=== PATIENT | female | born 1990 | race Caucasian/White ===

== ENCOUNTER 2024-01-08 08:28 | Outpatient (OUT) | payer BC, SELFPAY ==
[2024-01-08 08:54] LABS: Basophils Absolute Auto 0.1 10^3/uL (0.0-0.1); Basophils Percent Auto 1.3 % (0.2-2.0); Eosinophils Absolute Auto 0.2 10^3/uL (0.0-0.7); Eosinophils Percent Auto 3.7 % (0.9-7.0); Hemoglobin 13.9 g/dL (12.0-16.0); Immature Granulocytes Abs Auto 0.01 10^3/uL (0.00-0.03); Immature Granulocytes Pct Auto 0.2 % (0.0-0.5); Lymphocytes Absolute Auto 1.5 10^3/uL (1.2-3.8); Lymphocytes Percent Auto 26.8 % (20.5-60.0); Mean Corpuscular HGB Conc 33.1 g/dL (29.9-35.2); Mean Corpuscular Hemoglobin 30.2 pg (26.7-34.0); Mean Corpuscular Volume 91.3 fL (81.0-99.0); Mean Platelet Volume 9.6 fL (9.5-13.5); Monocytes Absolute Auto 0.5 10^3/uL (0.3-0.8); Monocytes Percent Auto 9.4 % (1.7-12.0); Neutrophils Absolute Auto 3.2 10^3/uL (1.4-6.5); Neutrophils Percent Auto 58.6 % (43.0-75.0); Platelet Count 313 10^3/uL (150-450); Red Cell Distribution Width 12.2 % (11.0-15.0); White Blood Count 5.4 10^3/uL (4.0-11.0)
[2024-01-08 09:32] LABS: Alanine Aminotransferase 16 U/L (14-59); Alkaline Phosphatase 49 U/L (46-116); Anion Gap 12.6; Aspartate Amino Transferase 15 U/L (15-37); BUN Creatinine Ratio 18.5; Bilirubin Total 0.4 mg/dL (0.2-1.0); Calcium 8.9 mg/dL (8.5-10.1); Carbon Dioxide 27.4 mmol/L (21.0-32.0); Chloride 101 mmol/L (98-107); Cholesterol 172 mg/dL (<=200); Estimated GFR (African America >60 (>=60); Estimated GFR (Non-African Ame >60 (>=60); Glucose 79 mg/dL (74-106); HDL Cholesterol 85 mg/dL (40-60); Sodium 137 mmol/L (136-145); Thyroid Stimulating Hormone 5.387 uIU/mL (0.358-3.740); Triglycerides 45 mg/dL (<=150)
[2024-01-08 09:33] LABS: Estimated Average Glucose 97 mg/dL
== END 2024-01-08 08:29 | disposition home or self-care (01) ==
LOC: LAB 08:28
PROVIDERS: Visit Provider Obstetrics & Gynecology
DX: Z00.00 Encounter for general adult medical examination without abnormal findings (principal)
CPT/HCPCS: 36415; 80053; 80061; 83036; 84443; 85025

== ENCOUNTER 2024-04-02 19:37 | Outpatient (REF) | payer BC, SELFPAY ==
--- OUTSIDE RECORDS SUMMARY | 2024-04-02 19:50 | XMS_ITS | CCD ---
Author Organization [facility] CliniSyde Care Team Providers Care Life Skills Educator Name Role Phone RICHARD CRISTINA Unavailable Unavailable RICHARD, CRISTINA Unavailable Unavailable MISC, DOCTOR Unavailable Unavailable CRISTINA RAMOS Unavailable Unavailable TIM, DR TITUS Admitting Unavailable TIM, DR TITUS Attending Unavailable TIM, DR TITUS Consulting Unavailable EVERT, DR ORLY Solomon Primary Care Unavailable ZIEBER, DR VISHNU Alvarez Consulting Unavailable TIM, DR TITUS Admitting Unavailable FRANK[place], DR ROSHAN Roberson Consulting Unavailable EVERT, DR ORLY Solomon Primary Care Unavailable TIM, DR TITUS Attending Unavailable TIM, DR TITUS Consulting Unavailable TIM, DR TITUS Admitting Unavailable DANIEL, ZOLTAN Primary Care Unavailable TIM, DR TITUS Attending Unavailable TIM, DR TITUS Consulting Unavailable TIM, DR TITUS Admitting Unavailable TIM, DR TITUS Attending Unavailable TIM, DR TITUS Consulting Unavailable EVERT, DR ORLY Solomon Primary Care Unavailable ZIEBER, DR VISHNU Alvarez Consulting Unavailable TIM, DR TITUS Admitting Unavailable TIM, DR TITUS Attending Unavailable TIM, DR TITUS Consulting Unavailable EVERT, DR ORLY Solomon Primary Care Unavailable TIM, DR TITUS Procedure Practitioner Unavailab le TIM, DR TITUS Consulting Unavailable EVERT, DR ORLY Solomon Primary Care Unavailable TIM, DR TITUS Admitting Unavailable TIM, DR TITUS Attending Unavailable KATHARINA TAN Procedure Practitioner Unavaila ble KATHARINA TAN Consulting Unavailable AYESHA MCKEON Consulting Unavailable WILIAN TRINH Consulting Unavailable TIM, DR TITUS Admitting Unavailable DANIEL, ZOLTAN Primary Care Unavailable TIM, DR TITUS Attending Unavailable TIM, DR TITUS Consulting Unavailable TIM, DR TITUS Consulting Unavailable EVERT, DR ORLY Solomon Primary Care Unavailable TIM, DR TITUS Admitting Unavailable TIM, DR TITUS Attending Unavailable DANIEL, ZOLTAN Consulting Unavailable DANIEL, ZOLTAN Attending Unavailable DANIEL, ZOLTAN Admitting Unavailable DANIEL, ZOLTAN Primary Care Unavailable DANIEL, ZOLTAN Primary Care Unavailable TIM, DR TITUS Attending Unavailable TIM, DR TITUS Consulting Unavailable TIM, DR TITUS Admitting Unavailable ZIEBER, DR VISHNU Alvarez Consulting Unavailable DANIEL, ZOLTAN Primary Care Unavailable RICHARD, CRISTINA Consulting Unavailable RICHARD, CRISTINA Attending Unavailable RICHARD, CRISTINA Admitting Unavailable RICHARD, CRISTINA Consulting Unavailable RICHARD, CRISTINA Attending Unavailable DANIEL, ZOLTAN Primary Care Unavailable RICHARD, CRISTINA Admitting Unavailable TIM, DR TITUS Admitting Unavailable RICH, DR ORLY Solomon Primary Care Unavailable TIM, DR TITUS Attending Unavailable TIM, DR TITUS Consulting Unavailable [place], DR ROSHAN Roberson Consulting Unavailable TIM, DR TITUS Admitting Unavailable RICH, DR ORLY Solomon Primary Care Unavailable TIM, DR TITUS Attending Unavailable TIM, DR TITUS Consulting Unavailable RCIH, DR ORLY Solomon Primary Care Unavailable TIM, DR TITUS Admitting Unavailable TIM, DR TITUS Attending Unavailable TIM, DR TITUS Admitting Unavailable TIM, DR TITUS Consulting Unavailable RICH, DR ORLY Solomon Primary Care Unavailable TIM, DR TITUS Attending Unavailable TIM, DR TITUS Admitting Unavailable RICH, DR ORLY Solomon Primary Care Unavailable TIM, DR TITUS Attending Unavailable TIM, DR TITUS Consulting Unavailable TIM, DR TITUS Admitting Unavailable TIM, DR TITUS Consulting Unavailable RICH, DR ORLY Solomon Primary Care Unavailable TIM, DR TITUS Attending Unavailable Parul Muhammad Unavailable Unavailable Primary Care Provider Unavailabl e Allergies Allergy Classification Reported Allergen(s) Allergy Type Date of Onset Reaction(s) Facility (1 source) Amoxicillin Drug Allergy 4 [facility] Repository (3 sources) Amoxicillin Drug Allergy 4 QR Artist Other (2 sources) Amoxicillin-Pot Clavulanate Drug Intolerance 9 [facility] Medications Current Medications Medication Drug Class(es) Dates Sig (Normalized) Sig (Original) azithromycin 250 mg oral tablet (1 source) Macrolide Antimicrobial Start: 03-26-2022 Azithromycin 250 MG 2 tablet on the first day, then 1 tablet daily for 4 days Orally Once a day for 5 day(s) Feb, Active Problems Active Problems Problem Classification Problem Date Documented Date Episodic/Chronic Acute and chronic tonsillitis (1 source) Other chronic diseases of tonsils and adenoids; Translations: [Other chronic disease of tonsils and adenoids] 06-21-2023 Chronic Menstrual disorders (4 sources) Irregular menstruation, unspecified; Translations: [IRREGULAR MENSTRUATION UNSPECIFIED] Onset: 06-07-2021 Chronic Other complications of ; puerperium affecting management of mother (1 source) Obesity complicating childbirth; Translations: [OBESITY COMPLICATING CHILDBIRTH] Onset: 12-22-2021 Chronic Other complications of ; puerperium affecting management of mother (1 source) Spinal and epidural anesthesia-induced headache during the puerperium; Translations: [SP EPID ANES-IND H/A DUR PUERPERIUM] Onset: 12-22-2021 Episodic Other complications of (4 sources) Maternal care for other known or suspected poor growth, unspecified trimester, not applicable or unspecified; Translations: [MAT CARE OTH SD FTL GRTH UNS TM UNS] Onset: 12-02-2021 Episodic Other complications of (4 sources) Other specified related conditions, third trimester; Translations: [OTH SPEC PREG RELATED COND 3RD TRI] Onset: 11-09-2021 Episodic Other complications of (4 sources) Maternal care for other known or suspected poor growth, third trimester, not applicable or unspecified; Translations: [MAT CARE OTH SD FTL GRTH 3RD TM UNS] Onset: 10-26-2021 Episodic Other nutritional; endocrine; and metabolic disorders (1 source) Obesity, unspecified; Translations: [OBESITY UNSPECIFIED] Onset: 12-22-2021 Chronic Other and delivery including normal (11 sources) Encounter for routine follow-up; Translations: [Single live ] Onset: 05-17-2021 Episodic Other upper respiratory infections (5 sources) Sore throat symptom; Translations: [Acute pharyngitis, unspecified] Episodic Previous (3 sources) Maternal care for unspecified type scar from previous delivery; Translations: [MAT CARE UNS TYPE SCAR PREV C-SECT] Onset: 12-15-2021 Episodic Residual codes; unclassified (1 source) 39 weeks gestation of ; Translations: [39 WEEKS GESTATION OF ] Onset: 12-22-2021 Episodic Residual codes; unclassified (1 source) Weeks of gestation of not specified; Translations: [WEEKS GESTATION NOT SPEC] Onset: 12-05-2021 Episodic Residual codes; unclassified (1 source) 33 weeks gestation of ; Translations: [33 WEEKS GESTATION OF ] Onset: 11-10-2021 Episodic Residual codes; unclassified (1 source) 31 weeks gestation of ; Translations: [31 WEEKS GESTATION OF ] Onset: 10-28-2021 Episodic Unclassified (20 sources) Encounter for screening for malignant neoplasm of cervix; Translations: [Encounter for screening for Streptococcus B] Onset: 02-05-2018 Episodic Unclassified (4 sources) CONTACT W/AND (SUSP) EXPOS COVID-19; Translations: [CONTACT W/AND (SUSP) EXPOS COVID-19] Onset: 06-03-2021 Past or Other Problems Problem Classification Problem Date Documented Date Episodic/Chronic Immunizations and screening for infectious disease (3 sources) Encounter for screening for infections with a predominantly sexual mode of transmission; Translations: [Contact with and (suspected) exposure to infections with a predominantly sexual mode of transmission] Onset: 04-16-2021 Episodic Other complications of (4 sources) Maternal care for other abnormalities of pelvic organs, first trimester; Translations: [MAT CARE OTH ABN PELV ORGAN 1ST TRI] Onset: 06-21-2021 Episodic Other female genital disorders (4 sources) Other specified noninflammatory disorders of vagina; Translations: [OTH SPEC NONINFLAMMATORY D/O VAGINA] Onset: 07-19-2021 Episodic Ovarian cyst (1 source) Corpus luteum cyst of right ovary; Translations: [CORPUS LUTEUM CYST OF RIGHT OVARY] Onset: 06-22-2021 Episodic Residual codes; unclassified (1 source) 20 weeks gestation of ; Translations: [20 WEEKS GESTATION OF ] Onset: 08-09-2021 Episodic Residual codes; unclassified (1 source) 13 weeks gestation of ; Translations: [13 WEEKS GESTATION OF ] Onset: 06-22-2021 Episodic Unclassified (1 source) CONTACT W/AND (SUSP) EXPOS COVID-19; Translations: [CONTACT W/AND (SUSP) EXPOS COVID-19] Onset: 06-01-2021 Results Test Name Value Interpretation Reference Range Facility No Panel InformationOrdered By: Augusta Mcguire on 06-21-2023 Quick Strep (POC) [facility] Quick Strepon 03-26-2022 S. pyogenes Org specific cx Ql (Throat) Positive [facility] [employer] Other Quick Strep [facility] [employer] Other CBC AUTO DIFFon 12-16-2021 BASO # 0.0 103/ul Normal 0.0-0.1 [facility] Comment on above: Performed By: #### C BC #### [facility] [address] [place] [address] Dr. Linette Vanessa Basophils/100 WBC (Bld) 0.3 % Normal 0.2-2.0 [facility] Comment on above: Performed By: #### C BC #### [facility] [address] [place] [address] Dr. Linette Vanessa EO # 0.2 103/ul Normal 0.0-0.7 [facility] Comment on above: Performed By: #### C BC #### [facility] [address] [place] [address] Dr. Linette Vanessa Eosinophils/100 WBC (Bld) 1.4 % Normal 0.9-7.0 [facility] Comment on above: Performed By: #### C BC #### [facility] [address] [place] [address] Dr. Linette Vanessa Erythrocyte distribution width (RBC) [Ratio] 12.8 % Normal 11.0-15.0 [facility] Comment on above: Performed By: #### C BC #### [facility] [address] [place] [address] Dr. Linette Vanessa Hematocrit (Bld) [Volume fraction] 28.9 % Critically low 36.0-48.0 [facility] Comment on above: Performed By: #### C BC #### [facility] [address] [address] [address] Linette Vanessa Hemoglobin (Bld) [Mass/Vol] 9.6 g/dL Critically low 12.0-16.0 [facility] Comment on above: Performed By: #### C BC #### [facility] [address] [address] [address] Linette Vanessa IG # 0.06 10e3/ul Critically high 0.00-0.03 [facility] Comment on above: Performed By: #### C BC #### [facility] [address] [address] [address] Linette Vanessa IG % 0.5 % Normal 0.0-0.5 [facility] Comment on above: Performed By: #### C BC #### [facility] [address] [place] [address] Dr. Linette Vanessa LYMPH # 2.2 103/ul Normal 1.2-3.8 [facility] Comment on above: Performed By: #### C BC #### [facility] [address] [place] [address] Dr. Linette Vanessa Lymphocytes/100 WBC (Bld) 19.3 % Critically low 20.5-60.0 [facility] Comment on above: Performed By: #### C BC #### [facility] [address] [place] [address] Dr. Linette Vanessa MANUAL DIFF REQ NO Normal [facility] Comment on above: Performed By: #### C BC #### [facility] [address] [place] [address] Dr. Linette Vanessa MCH (RBC) [Entitic mass] 30.3 pg Normal 26.7-34.0 [facility] Comment on above: Performed By: #### C BC #### [facility] [address] [place] [address] Dr. Linette Vanessa MCHC (RBC) [Mass/Vol] 33.2 g/dL Normal 29.9-35.2 [facility] Comment on above: Performed By: #### C BC #### [facility] [address] [place] [address] Dr. Linette Vanessa MCV (RBC) [Entitic vol] 91.2 fL Normal 81.0-99.0 [facility] Comment on above: Performed By: #### C BC #### [facility] [address] [place] [address] Dr. Linette Vanessa MONO # 0.9 103/ul Critically high 0.3-0.8 [facility] Comment on above: Performed By: #### C BC #### [facility] [address] [place] [address] Dr. Linette Vanessa Monocytes/100 WBC (Bld) 7.5 % Normal 1.7-12.0 [facility] Comment on above: Performed By: #### C BC #### [facility] [address] [place] [address] Dr. Linette Vanessa NEUT # 8.1 103/ul Critically high 1.4-6.5 [facility] Comment on above: Performed By: #### C BC #### [facility] [address] [place] [address] Dr. Linette Vanessa Neutrophils/100 WBC (Bld) 71.0 % Normal 43.0-75.0 [facility] Comment on above: Performed By: #### C BC #### [facility] [address] [place] [address] Dr. Linette Vanessa Platelet mean volume (Bld) [Entitic vol] 9.1 fL Critically low 9.5-13.5 [facility] Comment on above: Performed By: #### C BC #### [facility] [address] [place] [address] Dr. Linette Vanessa PLT 232 103/ul Normal 150-450 [facility] Comment on above: Performed By: #### C BC #### [facility] [address] [place] [address] Dr. Linette Vanessa RBC 3.17 106/ul Critically low 4.20-5.40 [facility] Comment on above: Performed By: #### C BC #### [facility] [address] [place] [address] Dr. Linette Vanessa WBC 11.5 103/ul Critically high 4.0-11.0 [facility] Comment on above: Performed By: #### C BC #### [facility] [address] [place] [address] Dr. Linette Vanessa CBC AUTO DIFFon 12-15-2021 BASO # 0.0 103/ul Normal 0.0-0.1 [facility] Comment on above: Performed By: #### C BC #### [facility] [address] [place] [address] Dr. Linette Vanessa Basophils/100 WBC (Bld) 0.4 % Normal 0.2-2.0 [facility] Comment on above: Performed By: #### C BC #### [facility] [address] [place] [address] Dr. Linette Vanessa EO # 0.2 103/ul Normal 0.0-0.7 [facility] Comment on above: Performed By: #### C BC #### [facility] [address] [place] [address] Dr. Linette Vanessa Eosinophils/100 WBC (Bld) 1.7 % Normal 0.9-7.0 [facility] Comment on above: Performed By: #### C BC #### [facility] [address] [place] [address] Dr. Linette Vanessa Erythrocyte distribution width (RBC) [Ratio] 12.6 % Normal 11.0-15.0 [facility] Comment on above: Performed By: #### C BC #### [facility] [address] [place] [address] Dr. Linette Vanessa Hematocrit (Bld) [Volume fraction] 33.7 % Critically low 36.0-48.0 [facility] Comment on above: Performed By: #### C BC #### [facility] [address] [place] [address] Dr. Linette Vanessa Hemoglobin (Bld) [Mass/Vol] 11.3 g/dL Critically low 12.0-16.0 [facility] Comment on above: Performed By: #### C BC #### [facility] [address] [place] [address] Dr. Linette Vanessa IG # 0.07 10e3/ul Critically high 0.00-0.03 [facility] Comment on above: Performed By: #### C BC #### [facility] [address] [place] [address] Dr. Linette Vanessa IG % 0.8 % Critically high 0.0-0.5 [facility] Comment on above: Performed By: #### C BC #### [facility] [address] [place] [address] Dr. Linette Vanessa LYMPH # 2.1 103/ul Normal 1.2-3.8 [facility] Comment on above: Performed By: #### C BC #### [facility] [address] [place] [address] Dr. Linette Vanessa Lymphocytes/100 WBC (Bld) 22.4 % Normal 20.5-60.0 [facility] Comment on above: Performed By: #### C BC #### [facility] [address] [place] [address] Dr. Linette Vanessa MANUAL DIFF REQ NO Normal [facility] Comment on above: Performed By: #### C BC #### [facility] [address] [place] [address] Dr. Linette Vanessa MCH (RBC) [Entitic mass] 30.6 pg Normal 26.7-34.0 [facility] Comment on above: Performed By: #### C BC #### [facility] [address] [place] [address] Dr. Linette Vanessa MCHC (RBC) [Mass/Vol] 33.5 g/dL Normal 29.9-35.2 [facility] Comment on above: Performed By: #### C BC #### [facility] [address] [place] [address] Dr. Linette Vanessa MCV (RBC) [Entitic vol] 91.3 fL Normal 81.0-99.0 [facility] Comment on above: Performed By: #### C BC #### [facility] [address] [place] [address] Dr. Linette Vanessa MONO # 0.7 103/ul Normal 0.3-0.8 [facility] Comment on above: Performed By: #### C BC #### [facility] [address] [place] [address] Dr. Linette Vanessa Monocytes/100 WBC (Bld) 7.1 % Normal 1.7-12.0 [facility] Comment on above: Performed By: #### C BC #### [facility] [address] [place] [address] Dr. Linette Vanessa NEUT # 6.3 103/ul Normal 1.4-6.5 [facility] Comment on above: Performed By: #### C BC #### [facility] [address] [place] [address] Dr. Linette Vanessa Neutrophils/100 WBC (Bld) 67.6 % Normal 43.0-75.0 [facility] Comment on above: Performed By: #### C BC #### [facility] [address] [place] [address] Dr. Linette Vanessa Platelet mean volume (Bld) [Entitic vol] 9.2 fL Critically low 9.5-13.5 [facility] Comment on above: Performed By: #### C BC #### [facility] [address] [place] [address] Dr. Linette Vanessa PLT 261 103/ul Normal 150-450 [facility] Comment on above: Performed By: #### C BC #### [facility] [address] [place] [address] Dr. Linette Vanessa RBC 3.69 106/ul Critically low 4.20-5.40 [facility] Comment on above: Performed By: #### C BC #### [facility] [address] [place] [address] Dr. Linette Vanessa WBC 9.3 103/ul Normal 4.0-11.0 [facility] Comment on above: Performed By: #### C BC #### [facility] [address] [place] [address] Dr. Linette Vanessa CULTURE URINEon 12-15-2021 CULTURE URINE Culture Observations: LIGHT GROWTH OF MIXED GENITAL LB. NO POTENTIAL PATHOGENS SEEN. Normal [facility] Comment on above: Performed By: #### H IV12 #### [facility] [address] [place] [address] Dr. Linette Vanessa DRUG SCREEN RAPID (URINE)on 12-15-2021 AMP Negative Normal NEGATIVE [facility] Comment on above: Performed By: #### D RUGRPD #### [facility] [address] [place] [address] Dr. Linette Vanessa BAR Negative Normal NEGATIVE [facility] Comment on above: Performed By: #### D RUGRPD #### [facility] [address] [place] [address] Dr. Linette Vanessa BUP Negative Normal NEGATIVE [facility] Comment on above: Performed By: #### D RUGRPD #### [facility] [address] [place] [address] Dr. Linette Vanessa BZO Negative Normal NEGATIVE [facility] Comment on above: Performed By: #### D RUGRPD #### [facility] [address] [place] [address] Dr. Linette Vanessa ERI Negative Normal NEGATIVE [facility] Comment on above: Performed By: #### D RUGRPD #### [facility] [address] [place] [address] Dr. Linette Vanessa CUT-OFFS SEE BELOW Normal [facility] Comment on above: Result Comment: AMP (Amphetamine): 500ng/mL, BAR (Barbituates): 200 ng/mL, BZO (Benzodiazepines): 150 ng/mL, BUP (Buprenorphine): 10 ng/mL, ERI (Cocaine): 150 ng/mL, mAMP (Methamphetamine): 500 ng/mL, MTD (Methadone): 200 ng/mL, OPI (Opiates): 100 ng/mL, OXY (Oxycodone): 100 ng/mL, PCP (Phencyclidine): 25 ng/mL, PPX (Propoxyphene): 300 ng/mL, THC (Cannabinoids): 50 ng/mL, TCA (Trycyclic Antidepressants): 300 ng/mL Performed By: #### D RUGRPD #### [facility] [address] [place] [address] Dr. Linette Vanessa DRUG CUT HEADER DRUG CLASS TEST SYSTEM CUT-OFF CONCENTRATIONS ARE FOLLOWS: Normal [facility] Comment on above: Performed By: #### D RUGRPD #### [facility] [address] [place] [address] Dr. Linette Vanessa mAMP Negative Normal NEGATIVE [facility] Comment on above: Performed By: #### D RUGRPD #### [facility] [address] [address] [address] Linette Vanessa MTD Negative Normal NEGATIVE [facility] Comment on above: Performed By: #### D RUGRPD #### [facility] [address] [place] [address] Dr. Linette Vanessa OPI Negative Normal NEGATIVE [facility] Comment on above: Performed By: #### D RUGRPD #### [facility] [address] [place] [address] Dr. Linette Vanessa OXY Negative Normal NEGATIVE [facility] Comment on above: Performed By: #### D RUGRPD #### [facility] [address] [address] [address] Linette Vanessa PCP Negative Normal NEGATIVE [facility] Comment on above: Performed By: #### D RUGRPD #### [facility] [address] [place] [address] Dr. Linette Vanessa PPX Negative Normal NEGATIVE [facility] Comment on above: Performed By: #### D RUGRPD #### [facility] [address] [address] [address] Linette Vanessa TCA Negative Normal NEGATIVE [facility] Comment on above: Performed By: #### D RUGRPD #### [facility] [address] [address] [address] Linette Vanessa THC Negative Normal NEGATIVE [facility] Comment on above: Performed By: #### D RUGRPD #### [facility] [address] [place] [address] Dr. Linette Vanessa TYPE AND SCREENon 12-15-2021 TYPE AND SCREEN Negative Normal [facility] Comment on above: Performed By: #### T NS #### [facility] [address] [place] [address] Dr. Linette Vanessa UA (CLEAN/CATCH) OFFICE SUPPORT ASSOCIATE/MICRO I F IND.on 12-15-2021 Bilirubin Ql (U) Negative Normal NEGATIVE [facility] Comment on above: Performed By: #### C BC #### [facility] [address] [place] [address] Dr. Linette Vanessa Clarity (U) CLEAR Normal CLEAR [facility] Comment on above: Performed By: #### C BC #### [facility] [address] [place] [address] Dr. Linette Vanessa Color (U) LT. YELLOW Normal YELLOW [facility] Comment on above: Performed By: #### C BC #### [facility] [address] [place] [address] Dr. Linette Vanessa Glucose Ql (U) Negative Normal NEGATIVE [facility] Comment on above: Performed By: #### C BC #### [facility] [address] [place] [address] Dr. Linette Vanessa Hemoglobin Ql (U) Negative Normal NEGATIVE [facility] Comment on above: Performed By: #### C BC #### [facility] [address] [place] [address] Dr. Linette Vanessa Ketones Ql (U) Negative Normal NEGATIVE [facility] Comment on above: Performed By: #### C BC #### [facility] [address] [place] [address] Dr. Linette Vanessa LEUKOCYTES TRACE Abnormal NEGATIVE [facility] Comment on above: Performed By: #### C BC #### [facility] [address] [place] [address] Dr. Linette Vanessa Nitrite Ql (U) Negative Normal NEGATIVE [facility] Comment on above: Performed By: #### C BC #### [facility] [address] [place] [address] Dr. Linette Vanessa pH (U) 6.0 [pH] Normal 5-9 [facility] Comment on above: Performed By: #### C BC #### [facility] [address] [place] [address] Dr. Linette Vanessa SPEC GRAVITY 1.020 Normal 1.005-<=1.02 5 [facility] Comment on above: Performed By: #### C BC #### [facility] [address] [place] [address] Dr. Linette Vanessa UA PROTEIN Negative Normal NEGATIVE/ TRACE [facility] Comment on above: Performed By: #### C BC #### [facility] [address] [place] [address] Dr. Linette Vanessa UR MICRO IND INDICATED Normal [facility] Comment on above: Performed By: #### C BC #### [facility] [address] [place] [address] Dr. Linette Vanessa Urobilinogen Qn (U) 0.2 {Roxanna'U}/dL Normal 0.2 - 1. 0 [facility] Comment on above: Performed By: #### C BC #### [facility] [address] [place] [address] Dr. Linette Vanessa URINE MICROSCOPIC ONLYon BACTERIA SMALL Abnormal NONE SEEN [facility] Comment on above: Performed By: #### C BC #### [facility] [address] [place] [address] Dr. Linette Vanessa Bacteria identified Cx Nom (U) INDICATED Normal [facility] Comment on above: Performed By: #### C BC #### [facility] [address] [place] [address] Dr. Linette Vanessa CAST NONE SEEN Normal NONE SEEN [facility] Comment on above: Performed By: #### C BC #### [facility] [address] [place] [address] Dr. Linette Vanessa Crystals LM Nom (Urine sed) NONE SEEN Normal NONE SEEN [facility] Comment on above: Performed By: #### C BC #### [facility] [address] [place] [address] Dr. Linette Vanessa Epithelial cells LM Ql (Urine sed) FEW Abnormal NONE SEEN /RARE [facility] Comment on above: Performed By: #### C BC #### [facility] [address] [place] [address] Dr. Linette Vanessa MUCOUS NONE SEEN Normal NONE SEEN [facility] Comment on above: Performed By: #### C BC #### [facility] [address] [place] [address] Dr. Linette Vanessa RBC 0-2 Normal 0-2 [facility] Comment on above: Performed By: #### C BC #### [facility] [address] [place] [address] Dr. Linette Vanessa WBC 5-10 Abnormal NONE SEEN [facility] Comment on above: Performed By: #### C BC #### [facility] [address] [place] [address] Dr. Linette Vanessa Covid-19 PCR ([facility])on 11-28 SARS-CoV-2 (COVID-19) RNA DARRYL+probe Ql (Unsp spec) Not detected Normal NOT DETECTED [facility] Comment on above: Result Comment: This test is not yet approved or cleared by the [place] FDA. When there are no FDA-approved or cleared tests available, and other criteria are met, FDA can make tests available under an emergency access mechanism called an Emergency Use Authorization (EUA). The EUA for this test is supported by the [employer] of Health and Human Service's (HHS's) declaration that circumstances exist to justify the emergency use of in vitro diagnostics for the detection and/or diagnosis of the virus that causes COVID-19. This EUA will remain in effect (meaning this test can be used) for the duration of the COVID-19 declaration justifying emergency of IVDs, unless it is terminated or revoked by FDA (after which the test may no longer be used). When diagnostic testing is negative, the possibility of a false negative should be considered in the context of a patient's recent exposures and the presence of clinical signs and symptoms consistent with SARS-CoV-2. Performed By: #### A 1C #### [facility] [address] [place] [address] Dr. Linette Vanessa US PREG GROWTHon 12-05-2021 US PREG GROWTH EXAMINATION: US PREG GROWTH HISTORY: [id number] baby COMPARISON: No relevant comparison available. FINDINGS: Heart Rate: 121.4 bpm Amniotic Fluid Volume: 13.2 cm Number: 1.0 Position: Cephalic presentation, longitudinal lie Maximum Vertical Pocket: 2.6 cm cm 2.9 cm cm 2.7 cm cm 5.0 cm cm BIOMETRY: BPD: 9.1 cm cm; 36 weeks 6 days; 60% HC: 33.3 cmcm; 38 weeks 0 days, 45% AC: 33.4 cm cm; 37 weeks 2 days, 70% FL: 6.7 cm cm; 34 weeks 5 days; 4.3 % % EFW: 3011.6 grams, 6 lbs. 10 oz., 45% FL/AC: 20.2 FL/BPD: 74.1 HC/AC: 1.0 GESTATIONAL AGE: Age by EDC: 37 weeks 1 days HERB by EDC: 12/22/2021 Age by US: 36 weeks 5 days HERB by US: 12/25/2021 IMPRESSION: Femur length less than 5% otherwise normal interval growth Electronically authenticated by: ROSHAN VIERA Date: 2021-12-05 07:35 Normal [facility] GROUP B STREP CULTUREon 10-29 S. agalactiae Ag Ql (Unsp spec) Culture Observations: NEGATIVE FOR GROUP B STREPTOCOCCUS. Normal [facility] Comment on above: Performed By: #### G BSCX #### [facility] [address] [place] [address] Dr. Linette Vanessa US PREG BIOPHY W NON STRESSo n 11-09-2021 US PREG BIOPHY W NON STRESS EXAMINATION: US PREG BIOPHY W NON STRESS HISTORY: Abnormal heart rate COMPARISON: No relevant comparison available. TECHNIQUE: Ultrasound biophysical profile was performed in the radiology department. FINDINGS: BREATHING MOVEMENTS: 2.0 GROSS BODY MOVEMENTS: 2.0 TONE: 2.0 QUALITATIVE AMNIOTIC FLUID VOLUME: 2.0 PRESENTATION: CEPHALIC HEART RATE: 139.7 bpm H.B./min AMNIOTIC FLUID VOLUME: 12.3 cm cm GESTATIONAL AGE: 33 weeks 6 days CONCLUSION: Total biophysical profile score: 8.0 Electronically authenticated by: ROSHAN VIERA Date: 2021-11-09 12:52 Normal [facility] US PREG GROWTHon 10-26-2021 US PREG GROWTH EXAMINATION: US PREG GROWTH HISTORY: Small for gestational age fetus COMPARISON: No relevant comparison available. FINDINGS: Heart Rate: 161.0 bpm Amniotic Fluid Volume: 12.6 cm Number: 1.0 Position: Cephalic presentation, longitudinal lie Maximum Vertical Pocket: 3.6 cm cm 3.8 cm cm 3.4 cm cm 1.9 cm cm BIOMETRY: BPD: 8.1 cm cm; 32 weeks 5 days; 66% HC: 30.1 cmcm; 33 weeks 3 days, 56% AC: 29.4 cm cm; 33 weeks 3 days, 87% FL: 6.1 cm cm; 31 weeks 5 days; 32.9 % % EFW: 2064.4 grams, 4 lbs. 5 oz., 72% FL/AC: 20.8 FL/BPD: 75.2 HC/AC: 1.0 GESTATIONAL AGE: Age by EDC: 31 weeks 6 days HERB by EDC: 12/22/2021 Age by US: 32 weeks 6 days HEBR by US: 12/15/2021 IMPRESSION: Normal interval growth Electronically authenticated by: ROSHAN VIERA Date: 2021-10-26 16:39 Normal [facility] AFP MATERNAL FOR SPINA BIFID Aon 09-16-2021 AFP MoM 1.28 Normal [facility] Comment on above: Performed By: #### C BC #### [facility] [address] [address] [address] Linette Vanessa AFP Value 54.2 ng/mL Normal [facility] Comment on above: Performed By: #### C BC #### [facility] [address] [address] [address] Linette Vanessa AFP, Serum for Spina Bifida Report Normal [facility] Comment on above: Performed By: #### C BC #### [facility] [address] [address] [address] Linette Vanessa Comment Comment Normal [facility] Comment on above: Result Comment: Uri Ventura, Ph.D., [facility] Director . References: Available Upon Request. . Multiples Of Median Cutoffs For AFP Elevations Sanchez 2.5 Black 2.8 IDD 2.0 Twins 4.5 Abbreviation Definitions IDD - Insulin Dep Diabetes OSBR - Open Spina Bifida Risk . For further inquiries contact [employer] [facility] at [phone]. Performed By: #### C BC #### [facility] [address] [address] [address] Linette Gaytan Age Collection Date 18.3 weeks Normal [facility] Comment on above: Performed By: #### C BC #### [facility] [address] [address] [address] Linette Vanessa Gestat, Age Based on HERB Normal [facility] Comment on above: Result Comment: Reca lculations are not recommended when gestational dating by LMP and ultrasound are within 10 days. Performed By: #### C BC #### [facility] [address] [address] [address] Linette Vanessa Insulin Dep Diabetes No Normal [facility] Comment on above: Performed By: #### C BC #### [facility] [address] [address] [address] Linette Vanessa Interpretation Comment Normal [facility] Comment on above: Result Comment: Inte rpretation: Screen Negative . This result is screen negative for OSB. The AFP MoM calculated is based on the gestational age provided. MS-AFP can identify up to 80% of open neural tube defects. Closed neural tube defects and some open defects may not be detected by this test. This test does not screen for Down Syndrome or Trisomy 18. If screening for Down Syndrome or Trisomy 18 is desired, contact [employer] to discuss available options. The [place] [employer] recommends amniocentesis be offered to women age 35 and older. Performed By: #### C BC #### [facility] [address] [address] [address] Linette Vanessa [age]B [age] Normal [facility] Comment on above: Performed By: #### C BC #### [facility] [address] [address] [address] Linette Vanessa Multiple Gestation No Normal [facility] Comment on above: Performed By: #### C BC #### [facility] [address] [place] [address] Dr. Linette Vanessa OSBR Risk 1 IN 5096 Normal [facility] Comment on above: Performed By: #### C BC #### [facility] [address] [place] [address] Dr. Linette Vanessa PDF . Normal [facility] Comment on above: Result Comment: This test was developed and its performance characteristics determined by [facility]. It has not been cleared or approved by the Food and Drug Administration. Performed By: #### C BC #### [facility] [address] [place] [address] Dr. Linette Vanessa Race Normal [facility] Comment on above: Performed By: #### C BC #### [facility] [address] [place] [address] Dr. Linette Vanessa Test Results: Negative Normal [facility] Comment on above: Performed By: #### C BC #### [facility] [address] [place] [address] Dr. Linette Vanessa GLUCOSE - 1HRon 09-01-2021 Glucose [Mass/Vol] 77 mg/dL Normal 74-106 [facility] Comment on above: Performed By: #### C BC #### [facility] [address] [place] [address] Dr. Linette Vanessa HEMOGRAM AND PLATELon 2021 Hematocrit (Bld) [Volume fraction] 33.6 % Critically low 36.0-48.0 [facility] Comment on above: Performed By: #### C BC #### [facility] [address] [place] [address] Dr. Linette Vanessa Hemoglobin (Bld) [Mass/Vol] 11.1 g/dL Critically low 12.0-16.0 [facility] Comment on above: Performed By: #### C BC #### [facility] [address] [place] [address] Dr. Linette Vanessa MCH (RBC) [Entitic mass] 31.4 pg Normal 26.7-34.0 [facility] Comment on above: Performed By: #### C BC #### [facility] [address] [place] [address] Dr. Linette Vanessa MCHC (RBC) [Mass/Vol] 33.0 g/dL Normal 29.9-35.2 [facility] Comment on above: Performed By: #### C BC #### [facility] [address] [address] [address] Linette Vanessa MCV (RBC) [Entitic vol] 95.2 fL Normal 81.0-99.0 [facility] Comment on above: Performed By: #### C BC #### [facility] [address] [address] [address] Linette Vanessa PLT 245 103/ul Normal 150-450 [facility] Comment on above: Performed By: #### C BC #### [facility] [address] [address] [address] Linette Vanessa RBC 3.53 106/ul Critically low 4.20-5.40 [facility] Comment on above: Performed By: #### C BC #### [facility] [address] [address] [address] Linette Vanessa WBC 6.3 103/ul Normal 4.0-11.0 [facility] Comment on above: Performed By: #### C BC #### [facility] [address] [place], [place] [address] Dr. Linette Vanessa US PREG ANATOMY SINGLEon US PREG ANATOMY SINGLE EXAMINATION: US P REG ANATOMY SINGLE HISTORY: screening COMPARISON: No relevant comparison available. TECHNIQUE: Transabdominal sonographic examination was performed for obstetrical and evaluation. FINDINGS: Number: 1 Heart Rate: 142.1 bpm H.B. /min Amniotic Fluid Volume: Subjectively normal. Placental Location: POSTERIOR-fundal with lower margin 5.3 cm from internal os. Cervix Length: 5 cm , closed. ANATOMY: Normal Structures -cerebellum, choroid plexus, cisterna magna, lateral cerebral ventricles, orbits, midline falx, hard palate, four-chamber heart, RVOT, LVOT, stomach, kidneys, bladder, umbilical cord insertion into abdomen, three-vessel cord, cervical spine, thoracic spine, lumbar spine, sacral spine, right upper extremity, left upper extremity, right lower extremity, left lower extremity. SUBOPTIMALLY SEEN: None ABNORMALITIES: None BIOMETRY: BPD: 4.9 cm 20 weeks 5 days HC: 18.2 cm 20 weeks 4 days AC: 16.0 cm 21 weeks 1 days FL: 3.4 cm 20 weeks 5 days EFW:384.7 grams; 90% FL/AC: 21.4 FL/BPD: 70.0 HC/AC: 1.1 GESTATIONAL AGE: Age by EDC: 20 weeks 0 days HERB by EDC: 12/22/2021 Age by current US: 20 weeks 6 days HERB by current US: 12/16/2021 IMPRESSION: 1. Single live intrauterine with growth detailed above. Electronically authenticated by: VISHNU DAMON Date: 2021-08-05 08:03 Normal [facility] CHLAMYDIA/GONOCOCCUS DARRYL ( AB/URINE/PAPon 07-22-2021 Chlamydia trachomatis, DARRYL Negative Normal Negative [facility] Comment on above: Performed By: #### C BC #### [facility] [address] [place] [address] Dr. Linette Vanessa Neisseria gonorrhoeae, DARRYL Negative Normal Negative [facility] Comment on above: Performed By: #### C BC #### [facility] [address] [address] [address] Linette Vanessa VAGINITIS/VAGINOSIS DNA PROB Adonis 07-21-2021 Hortencia species Negative Normal Negative [facility] Comment on above: Performed By: #### A 1C #### [facility] [address] [place] [address] Dr. Linette Vanessa Gardnerella vaginalis Positive Abnormal Negative [facility] Comment on above: Performed By: #### A 1C #### [facility] [address] [address] [address] Linette Vanessa Trichomonas vaginalis Negative Normal Negative [facility] Comment on above: Performed By: #### A 1C #### [facility] [address] [place] [address] Dr. Linette Vanessa US PREG TVon 06-21-2021 US PREG TV EXAMINATION: US PREG TV HISTORY: Cyst of right ovary , follow-up COMPARISON: Ultrasound transvaginal 05/13/2021 FINDINGS: GESTATIONAL SAC: Present and normal appearing. POLE: Present and normal appearing. YOLK SAC: Not seen. CARDIAC: Present. UTERUS: Normal size and appearance. OVARIES: Right: Corpus lutein cysts, decreased in size compared to prior study. Left: Not seen. CERVIX: 4.2 cm in length and closed. CUL-DE-SAC: Normal. OTHER: None. AGE BY LMP: 13 weeks, 5 days HERB BY LMP: 12/22/2021 AGE BY US CRL: 14 weeks, 1 day HERB BY US CRL: 12/19/2021 IMPRESSION: 1. Single live intrauterine . 2. Corpus lutein cyst within right ovary has decreased in size compared to prior study. No suspicious findings. Electronically authenticated by: VISHNU DAMON Date: 2021-06-21 17:32 Normal [facility] HEPATITIS C VIRUS AB W/ REFL EX QUANTon 06-09-2021 HCV AB <0.1 Normal 0.0-0.9 [facility] Comment on above: Performed By: #### C BC #### [facility] [address] [place] [address] Dr. Linette Vanessa Interpretation: Comment Normal [facility] Comment on above: Result Comment: Nega tive Not infected with HCV, unless recent infection is suspected or other evidence exists to indicate HCV infection. Performed By: #### C BC #### [facility] [address] [place] [address] Dr. Linette Vanessa HEP B SURFACE ANTIGEN SCREEN on 06-08-2021 HBsAg Screen Negative Normal Negative [facility] Comment on above: Performed By: #### A 1C #### [facility] [address] [place] [address] Dr. Linette Vanessa HIV 1 AND 2 WITH REFLEXon HIV Screen 4th Generation wRfx Non-Reactive Normal Non Reactive [facility] Comment on above: Result Comment: HIV Negative HIV-1/HIV-2 antibodies and HIV-1 p24 antigen were NOT detected. There is no laboratory evidence of HIV infection. Performed By: #### H IV12 #### [facility] [address] [place] [address] Dr. Linette Vanessa RPR QUANTon 06-08-2021 Rapid Plasma Reagin, Quant Non-Reactive Normal NonRea<1:1 [facility] Comment on above: Performed By: #### C BC #### [facility] [address] [place] [address] Dr. Linette Vanessa RUBELLA AB IGGon 06-08-2021 Rubella Antibodies, IgG 2.43 index Normal Immune >0.99 [facility] Comment on above: Result Comment: Non- immune <0.90 Equivocal 0.90 - 0.99 Immune >0.99 Performed By: #### H IV12 #### [facility] [address] [place] [address] Dr. Linette Vanessa CBC AUTO DIFFon 06-07-2021 BASO # 0.0 103/ul Normal 0.0-0.1 [facility] Comment on above: Performed By: #### C BC #### [facility] [address] [place] [address] Dr. Linette Vanessa Basophils/100 WBC (Bld) 0.4 % Normal 0.2-2.0 [facility] Comment on above: Performed By: #### C BC #### [facility] [address] [place] [address] Dr. Linette Vanessa EO # 0.1 103/ul Normal 0.0-0.7 [facility] Comment on above: Performed By: #### C BC #### [facility] [address] [place] [address] Dr. Linette Vanessa Eosinophils/100 WBC (Bld) 1.0 % Normal 0.9-7.0 [facility] Comment on above: Performed By: #### C BC #### [facility] [address] [place] [address] Dr. Linette Vanessa Erythrocyte distribution width (RBC) [Ratio] 11.9 % Normal 11.0-15.0 [facility] Comment on above: Performed By: #### C BC #### [facility] [address] [place] [address] Dr. Linette Vanessa Hematocrit (Bld) [Volume fraction] 37.9 % Normal 36.0-48.0 [facility] Comment on above: Performed By: #### C BC #### [facility] [address] [place] [address] Dr. Linette Vanessa Hemoglobin (Bld) [Mass/Vol] 12.7 g/dL Normal 12.0-16.0 [facility] Comment on above: Performed By: #### C BC #### [facility] [address] [place] [address] Dr. Linette Vanessa IG # 0.03 10e3/ul Normal 0.00-0.03 [facility] Comment on above: Performed By: #### C BC #### [facility] [address] [place] [address] Dr. Linette Vanessa IG % 0.4 % Normal 0.0-0.5 [facility] Comment on above: Performed By: #### C BC #### [facility] [address] [place] [address] Dr. Linette Vanessa LYMPH # 1.9 103/ul Normal 1.2-3.8 [facility] Comment on above: Performed By: #### C BC #### [facility] [address] [place] [address] Dr. Linette Vanessa Lymphocytes/100 WBC (Bld) 24.9 % Normal 20.5-60.0 [facility] Comment on above: Performed By: #### C BC #### [facility] [address] [place] [address] Dr. Linette Vanessa MANUAL DIFF REQ NO Normal [facility] Comment on above: Performed By: #### C BC #### [facility] [address] [place] [address] Dr. Linette Vanessa MCH (RBC) [Entitic mass] 30.2 pg Normal 26.7-34.0 [facility] Comment on above: Performed By: #### C BC #### [facility] [address] [place] [address] Dr. Linette Vanessa MCHC (RBC) [Mass/Vol] 33.5 g/dL Normal 29.9-35.2 [facility] Comment on above: Performed By: #### C BC #### [facility] [address] [place] [address] Dr. Linette Vanessa MCV (RBC) [Entitic vol] 90.0 fL Normal 81.0-99.0 [facility] Comment on above: Performed By: #### C BC #### [facility] [address] [place] [address] Dr. Linette Vanessa MONO # 0.4 103/ul Normal 0.3-0.8 [facility] Comment on above: Performed By: #### C BC #### [facility] [address] [place] [address] Dr. Linette Vanessa Monocytes/100 WBC (Bld) 5.2 % Normal 1.7-12.0 [facility] Comment on above: Performed By: #### C BC #### [facility] [address] [place] [address] Dr. Linette Vanessa NEUT # 5.3 103/ul Normal 1.4-6.5 [facility] Comment on above: Performed By: #### C BC #### [facility] [address] [place] [address] Dr. Linette Vanessa Neutrophils/100 WBC (Bld) 68.1 % Normal 43.0-75.0 [facility] Comment on above: Performed By: #### C BC #### [facility] [address] [place] [address] Dr. Linette Vanessa Platelet mean volume (Bld) [Entitic vol] 9.2 fL Critically low 9.5-13.5 [facility] Comment on above: Performed By: #### C BC #### [facility] [address] [place] [address] Dr. Linette Vanessa PLT 294 103/ul Normal 150-450 [facility] Comment on above: Performed By: #### C BC #### [facility] [address] [place] [address] Dr. Linette Vanessa RBC 4.21 106/ul Normal 4.20-5.40 [facility] Comment on above: Performed By: #### C BC #### [facility] [address] [place] [address] Dr. Linette Vanessa WBC 7.8 103/ul Normal 4.0-11.0 [facility] Comment on above: Performed By: #### C BC #### [facility] [address] [address] [address] Linette Vanessa CULTURE URINEon 06-07-2021 CULTURE URINE Culture Observations: NO GROWTH. Normal [facility] Comment on above: Performed By: #### U RCX #### [facility] [address] [address] [address] Linette Vanessa GLYCOHEMOGLOBIN A1Con 2021 ADA RECOMMENDATION ADA THERAPEUTIC TARGET 6.0 - 7.0 ACTION SUGGESTED > 7.0 Normal [facility] Comment on above: Performed By: #### A 1C #### [facility] [address] [place] [address] Dr. Linette Vanessa Glucose [Mass/Vol] 111 mg/dL Normal [facility] Comment on above: Performed By: #### A 1C #### [facility] [address] [place] [address] Dr. Linette Vanessa HbA1c (Bld) [Mass fraction] 5.5 % Normal <=6.0 [facility] Comment on above: Performed By: #### A 1C #### [facility] [address] [place] [address] Dr. Linette Vanessa ISH BOX TEST PT SEND OUTo n 06-07-2021 SENT TO REF LAB 06/07/2021 Normal [facility] Comment on above: Performed By: #### C BC #### [facility] [address] [place] [address] Dr. Linette Vanessa TYPE AND SCREENon 06-07-2021 TYPE AND SCREEN Negative Normal [facility] Comment on above: Performed By: #### H IV12 #### [facility] [address] [place] [address] Dr. Linette Vanessa ASYMPTOMATIC COVID-19 ANTIGE Non 06-01-2021 EUA Statement SEE BELOW Normal [facility] Comment on above: Result Comment: This test has not been FDA cleared or approved, but has been authorized by the FDA under an Emergency Use Authorization (EUA) for use by authorized laboratories certified under CLIA that meet the requirements to perform moderate or high complexity testing. This test has been authorized only for the detection of proteins from SARS-CoV-2, not for any other viruses or pathogens. The emergency use of this test is authorized for the duration of the declaration that circumstances exist justifying the authorization of emergency use of in vitro diagnostic tests for detection and/or diagnosis of Covid-19 under section 564(b)(1) of the Act, 21 U.S.C. 360bbb-3(b)(1), unless the declaration is terminated or authorization is revoked sooner. Performed By: #### C VDAGA #### [facility] [address] [place] [address] Dr. Linette Vanessa SARS-CoV-2 (COVID-19) RNA DARRYL+probe Ql (Unsp spec) Negative Normal NEGATIVE [facility] Comment on above: Result Comment: Nega tive results are presumptive. They do not preclude infection and should not be used as the sole basis for treatment decisions. Additional confirmatory testing by a molecular method should be considered. Performed By: #### C VDAGA #### [facility] [address] [place] [address] Dr. Linette Vanessa US PREG TVon 05-13-2021 US PREG TV EXAMINATION: US PREG TV HISTORY: Missed period COMPARISON: No relevant comparison available. FINDINGS: GESTATIONAL SAC: Present and normal appearing. POLE: Present and normal appearing. YOLK SAC: Present. CARDIAC: Present. UTERUS: Normal size and appearance. OVARIES: Right: Corpus lutein cyst. Left: Normal. CERVIX: 3.4 cm in length and closed. CUL-DE-SAC: Normal. OTHER: Prominent parauterine vessels. AGE BY LMP: 8 weeks, 1 day HERB BY LMP: 12/22/2021 AGE BY US CRL: 8 weeks, 5 days HERB BY US CRL: 12/18/2021 IMPRESSION: 1. Single live intrauterine . Electronically authenticated by: VISHNU DAMON Date: 2021-05-13 10:55 Normal [facility] PREG QUANT HCGon 04-29-2021 HCG QUANT [id number] mIU/mL Normal [facility] Comment on above: Performed By: #### A 1C #### [facility] [address] [place] [address] Dr. Linette Vanessa HCG RANGE SEE BELOW Normal [facility] Comment on above: Result Comment: 5-50 0-1 WEEK 40-300 1-2 WEEKS 100-1,000 2-3 WEEKS 500-6,000 3-4 WEEKS 5,000-200,000 1-2 MONTHS 10,000-100,000 2-3 MONTHS 3,000-50,000 2ND TRIMESTER 1,000-50,000 3RD TRIMESTER Performed By: #### A 1C #### [facility] [address] [address] [address] Linette Vanessa Pap IG, rfx Aptima HPV, rfx 16/18,45 + Con 04-19-2021 . . Normal [facility] Comment on above: Result Comment: Perf ormed at: WB Performed By: #### H IV12 #### [facility] [address] [place] [address] Dr. Linette Vanessa Chlamydia, Nuc. Acid Amp Negative Normal Negative [facility] Comment on above: Result Comment: Perf ormed at: =G Performed By: #### H IV12 #### [facility] [address] [place] [address] Dr. Linette Vanessa DIAGNOSIS: Comment Normal [facility] Comment on above: Result Comment: NEGA TIVE FOR INTRAEPITHELIAL LESION OR MALIGNANCY. Performed at: WB Performed By: #### H IV12 #### [facility] [address] [place] [address] Dr. Linette Vanessa Gonococcus, Nuc. Acid Amp Negative Normal Negative [facility] Comment on above: Result Comment: Perf ormed at: =G Performed By: #### H IV12 #### [facility] [address] [place] [address] Dr. Linette Vanessa HPV Aptima Negative Normal Negative [facility] Comment on above: Result Comment: This nucleic acid amplification test detects fourteen high-risk HPV types (16,18,31,33,35,39,45,51,52,56,58,59,66,68) without differentiation. Performed at: =G Performed By: #### H IV12 #### [facility] [address] [place] [address] Dr. Linette Vanessa Methodology: Comment Normal [facility] Comment on above: Result Comment: This liquid based ThinPrep(R) pap test was screened with the use of an image guided system. Performed at: WB Performed By: #### H IV12 #### [facility] [address] [address] [address] Linette Vanessa Note: Comment Normal [facility] Comment on above: Result Comment: The Pap smear is a screening test designed to aid in the detection of premalignant and malignant conditions of the uterine cervix. It is not a diagnostic procedure and should not be used as the sole means of detecting cervical cancer. Both false-positive and false-negative reports do occur. . Performed at: WB Performed By: #### H IV12 #### [facility] [address] [address] [address] Linette Vanessa Performed by: Comment Normal [facility] Comment on above: Result Comment: Rosaura Ureña, Manager Business Operations (ASCP) Performed at: WB Performed By: #### H IV12 #### [facility] [address] [place] [address] Dr. Linette Vanessa Specimen adequacy: Comment Normal [facility] Comment on above: Result Comment: Sati sfactory for evaluation. Endocervical and/or squamous metaplastic cells (endocervical component) are present. Performed at: WB Performed By: #### H IV12 #### [facility] [address] [place] [address] Dr. Linette Vanessa PAP W/ HR HPV RFX 16 AND 18o n 02-07-2018 DIAGNOSIS: Comment Normal [facility] Comment on above: Result Comment: NEGA TIVE FOR INTRAEPITHELIAL LESION AND MALIGNANCY.Performed at: WB Performed By: #### P APHR2 ####[facility] [address] [address]Nicholas Murphy HPV, high-risk Negative Normal Negative [facility] Comment on above: Result Comment: This high-risk HPV test detects thirteen high-risk types(16/18/31/33/35/39/45/51/52/56/58/59/68) without differentiation. .Performed at: =G Performed By: #### P APHR2 ####[facility] [address] [place] [address] Katherine Methodology: Comment Normal [facility] Comment on above: Result Comment: This liquid based ThinPrep(R) pap test was screened with theuse of an image guided system.Performed at: WB Performed By: #### P APHR2 ####[facility] [address] [place] [address] Katherine Note: Comment Normal [facility] Comment on above: Result Comment: The Pap smear is a screening test designed to aid in the detection ofpremalignant and malignant conditions of the uterine cervix. It is not adiagnostic procedure and should not be used as the sole means of detectingcervical cancer. Both false-positive and false-negative reports do occur. .Performed at: WB Performed By: #### P APHR2 ####[facility] [address] [place] [address] Katherine Performed by: Comment Normal [facility] Comment on above: Result Comment: Ryann Mejia, Manager Business Operations (ASCP)Performed at: WB Performed By: #### P APHR2 ####[facility] [address] [place] [address] Katherine Specimen adequacy: Comment Normal [facility] Comment on above: Result Comment: Sati sfactory for evaluation. Endocervical and/or squamous metaplasticcells (endocervical component) are present.Performed at: WB Performed By: #### P APHR2 ####[facility] [address] [place] [address] Katherine . . Normal [facility] Comment on above: Result Comment: Perf ormed at: WB Performed By: #### P APHR2 ####[facility] [address] [place] [address] Katherine Vital Signs Date Time Vital Sign Value Performing Clinician Facility 04-02-2024 16:29-0500 Body weight 88 kg Ariela Tim [employer] Work Phone: [facility] 04-02-2024 16:29-0500 Diastolic blood pressure 76 mm[Hg] Ariela Tim DO Work Phone: [facility] 04-02-2024 16:29-0500 Systolic blood pressure 118 mm[Hg] Ariela Tim DO Work Phone: [facility] 06-21-2023 10:02-0500 Body height 167.64 cm [facility] 06-21-2023 10:02-0500 Body mass index (BMI) [Ratio] 30.9 kg/m2 [facility] 06-21-2023 10:02-0500 Body temperature 98.8 [degF] [facility] 06-21-2023 10:02-0500 Body weight 87.08 kg [facility] 06-21-2023 10:02-0500 Heart rate 81 /min [facility] 06-21-2023 10:02-0500 Respiratory rate 18 /min [facility] 06-21-2023 10:02-0500 SaO2% (BldA) [Mass fraction] 98 % [facility] 03-26-2022 10:30-0500 Body height 167.64 cm Parul Sabina Other [facility] [facility] [employer] Other 03-26-2022 10:30-0500 Body mass index (BMI) [Ratio] 30.66 kg/m2 Parul Sabina Other [employer] Other 03-26-2022 10:30-0500 Body temperature 98.1 [degF] Parul Sabina Other [employer] Other 03-26-2022 10:30-0500 Body weight 86.18 kg Parul Sabina Other [employer] Other 03-26-2022 10:30-0500 Diastolic blood pressure 68 mm[Hg] Parul Sabina Other [employer] Other 03-26-2022 10:30-0500 Respiratory rate 18 /min Parul Muhammad Other [employer] Other 03-26-2022 10:30-0500 SaO2% (BldA) [Mass fraction] 100 % Parul Muhammad Other [facility] Other 03-26-2022 10:30-0500 Systolic blood pressure 120 mm[Hg] Parul Muhammad Other [employer] Other 09-16-2021 13:48-0400 Body weight 81.[address] DR ARIELA DUMONT [facility] Comment on above: Performed By: #### CBC #### [facility] [address] [place] [address] Dr. Linette Vanessa Encounters Encounter Date Encounter Type Care Provider Facility Start: 04-02-2024 End: 04-02-2024 Patient encounter procedure Ariela Tim DO Work Phone: [facility] Work Phone: Start: 04-02-2024 End: 04-02-2024 Periodic preventive med est patient 18-39 yrs Ariela Tim DO Work Phone: [facility] Comment on above: Well woman exam with routine gynecological exam Start: 04-02-2024 End: 04-02-2024 Bamboo flowsheet Ariela Tim DO Work Phone: [facility] Start: 04-02-2024 End: 04-02-2024 Bamboo flowsheet Ariela Tim DO Work Phone: [facility] Start: 06-21-2023 End: 06-21-2023 ambulatory [facility] Work Phone: Start: 06-21-2023 End: 06-21-2023 Patient encounter procedure [facility] Work Phone: Start: 03-26-2022 End: 03-26-2022 ambulatory Parul Muhammad Other [employer] Other Start: 03-26-2022 Office outpatient ne w 20 minutes Parul Muhammad [facility] Start: 12-21-2021 End: 12-21-[address] ORLY RICH Facility:[facility]1 Start: 12-15-2021 End: 12-17-2021 Evaluation and management of inpatient DR ARIELA DUMONT Facility:[facility] Start: 12-14-2021 Encounter for preprocedural laboratory examination DR ARIELA DUMONT [facility] Start: 12-13-2021 End: 12-14-[address] ARIELA DUMONT Facility:[facility] Start: 12-13-2021 End: 12-14-2021 Encounter for preprocedural laboratory examination DR ARIELA DUMONT Facility:[facility] Start: 12-02-2021 End: 12-03-[address] ARIELA DUMONT Facility:[facility]1 Start: 11-23-2021 End: 11-23-[address] ARIELA DUMONT Facility:[facility] Start: 11-09-2021 End: 11-09-[address] ARIELA DUMONT Facility:[facility] Start: 10-26-2021 End: 10-27-[address] ROSHAN VIERA Facility:[facility] Start: 09-01-2021 End: 09-02-[address] ARIELA DUMONT Facility:[facility] Start: 08-04-2021 End: 08-05-[address] ARIELA DUMONT Facility:[facility] Start: 07-23-2021 End: 07-24-[address] ARIELA DUMONT Facility:[facility] Start: 07-19-2021 End: 07-19-[address] ARIELA DUMONT Facility:[facility] Start: 06-21-2021 End: 06-22-[address] ARIELA DUMONT Facility:[facility] Start: 06-07-2021 End: 06-08-[address] ARIELA DUMONT Facility:[facility] Start: 06-01-2021 End: 06-01-2021 ambulatory ZOLTAN SANCHEZ Facility:[facility] Start: 05-13-2021 End: 05-14-2021 ambulatory ZOLTAN SANCHEZ Facility:[facility] Start: 05-05-2021 Encounter for gynecological examination (general) (routine) without abnormal findings CRISTINA RAMOS [facility] Start: 04-29-2021 End: 04-30-2021 ambulatory ZOLTAN SANCHEZ Facility:[facility] Start: 04-29-2021 End: 04-30-2021 Encounter for gynecological examination (general) (routine) without abnormal findings ZOLTAN SANCHEZ Facility:[facility] Start: 04-13-2021 End: 04-13-2021 ambulatory CRISTINA RAMOS Facility:[facility] Start: 02-05-2018 End: 02-05-2018 Patient encounter CRISTINA RAMOS Facility:[facility]1 Procedures Date Procedure Procedure Detail Performing Clinician Start: 06-21-2023 Quick Strep (POC) Start: 12-16-2021 Introduction of Othe r Therapeutic Substance into Spinal Canal, Percutaneous Approach DR ARIELA DUMONT Start: 12-15-2021 Extraction of Produc ts of Conception, Low Cervical, Open Approach DR ARIELA DUMONT Plan of Treatment Date Care Activity Detail Author Start: 04-07-2025 End: 04-07-2025 Patient encounter procedure 04/07/2025 3:00 PM EST Office Visit [facility] [address] [place] [id number] Ariela Dumont, [address] [place] [address] [facility] Cytology Cervical or vaginal smear or scraping study Pap Smear Pathology and Cytology Routine Well woman exam with routine gynecological exam Ordered: 04/02/2024 [facility] Work Phone: Comment on above: Ordered: 04/02/2024 Human papilloma viru s DNA [Presence] in Unspecified specimen by Probe with amplification HPV DNA probe, amplified Microbiology Routine Well woman exam with routine gynecological exam Ordered: 04/02/2024 [facility] Comment on above: Ordered: 04/02/2024 Payers Date Payer Category Payer Blue Cross Blue [employer] BCBS [id number] 1988 Unknown [id number] 2.16840.1.096981.3.579.2. 593 1988 Unknown [id number] 2.16840.1.863053.3.579.2. 593 1988 Unknown [id number] 2.16840.1.729303.3.579.2. 593 1988 Unknown [id number] 2.16840.1.726634.3.579.2. 593 1988 Unknown [id number] 2.16840.1.658910.3.579.2. 593 1988 Unknown [id number] 2.16840.1.166314.3.579.2. 593 1988 Unknown [id number] 2.16840.1.088887.3.579.2. 593 1988 Unknown [id number] 2.16840.1.560409.3.579.2. 593 1988 Unknown [id number] 2.16840.1.172383.3.579.2. 593 1988 Unknown [id number] 2.16.840.1.086592.3.579.2. 593 1988 Unknown [id number] 2.16840.1.664251.3.579.2. 593 1988 Unknown [id number] 2.16840.1.346568.3.579.2. 593 1988 Unknown [id number] 2.16.840.1.572193.3.579.2. 593 1988 Unknown [id number] 2.16.840.1.341486.3.579.2. 593 1988 Unknown [id number] 2.16.840.1.541559.3.579.2. 593 1988 Unknown [id number] 2.16.840.1.082514.3.579.2. 593 1988 Unknown [id number] 2.16.840.1.587889.3.579.2. 593 1988 Unknown [id number] 2.16.840.1.711288.3.579.2. 593 1959 Private Health Insurance [id number] 1959 Self-pay [id number] 1959 Unknown [id number] Unknown [id number] 2.16.840.1.905332.3.579.2. 593 Unknown MMO [id number] Unknown Tali BC/BS [id number] Social History Date Type Detail Facility Sex Assigned At [employer] Other Start: 1990 Sex Assigned At Female [facility] Tobacco smoking status WIIS Tobacco smoking consumption unknown [facility] Start: 1990 Sex assigned at Not on file [facility] History of Present illness Narrative 04-02-2024 JAVAD Anders - 04/02/2024 3:50 PM EST Note Date & Type Note Facility 04-02-2024 History of Presen t illness Narrative Reason for Appointment: Patient ID: Sonali Mcdonald is a 33 y.o. female who presents for Well Women Visit Patient presents today for Annual Exam. MEDICATIONS No current outpatient medications ALLERGIES Allergies Allergen Reactions Amoxicillin Hives Amoxicillin-Pot Clavulanate Hives PROBLEMS Active Ambulatory Problems Diagnosis Date Noted No Active Ambulatory Problems Resolved Ambulatory Problems Diagnosis Date Noted No Resolved Ambulatory Problems No Additional Past Medical History HISTORY PAST MEDICAL HISTORY SOCIAL HISTORY No past medical history on file. Social History Tobacco Use Smoking status: Not on file Smokeless tobacco: Not on file Substance Use Topics Alcohol use: Not on file Drug use: Not on file FAMILY HISTORY No family history on file. SURGICAL HISTORY No past surgical history on file. REVIEW OF SYSTEMS Review of Systems: Review of Systems Constitutional: Negative. HENT: Negative. Eyes: Negative. Respiratory: Negative. Cardiovascular: Negative. Gastrointestinal: Negative. Genitourinary: Negative. Musculoskeletal: Negative. Skin: Negative. Neurological: Negative. All other systems reviewed and are negative. Hematological: Negative. Endocrine: Negative. Allergic/Immunologic: Negative. OBJECTIVE Objective: Physical Exam Constitutional: Appearance: Normal appearance. She is normal weight. Genitourinary: Right Adnexa: not tender and no mass present. Left Adnexa: not tender and no mass present. No cervical discharge. Breasts: Breasts are soft. Right: Normal. Left: Normal. HENT: Head: Normocephalic. Nose: Nose normal. Mouth/Throat: Mouth: Mucous membranes are moist. Cardiovascular: Rate and Rhythm: Normal rate. Pulses: Normal pulses. Pulmonary: Effort: Pulmonary effort is normal. Breath sounds: Normal breath sounds. Abdominal: General: Bowel sounds are normal. Palpations: Abdomen is soft. Musculoskeletal: General: Normal range of motion. Cervical back: Normal range of motion. Neurological: General: No focal deficit present. Mental Status: She is alert and oriented to person, place, and time. Skin: General: Skin is warm and dry. Psychiatric: Mood and Affect: Mood normal. Behavior: Behavior normal. Thought Content: Thought content normal. Judgment: Judgment normal. Vitals and nursing note reviewed. Exam conducted with a automatic winder operator present. Vitals: There is no height or weight on file to calculate BMI. BP: 118/76 No LMP recorded. ASSESSMENT & PLAN ICD-10-CM 1. Well woman exam with routine gynecological exam Z01.419 Pap Smear HPV DNA probe, amplified Annual Exam: Patient presents today for an annual exam. Patient states she is doing well and has no complaints. Pap was obtained without difficulty. Orders Placed This Encounter Procedures HPV DNA probe, amplified Follow Up: Patient is to return in one year for annual unless needed otherwise. Documented by JAVAD Anders documented in this encounter [facility] Evaluation note 03-26-2022 Note Date & Type Note Facility 03-26-2022 Evaluation note Encounter Date Diagnosis Assessment Notes Feb, Sore throat (ICD-10 - J02.9) Feb, Strep pharyngitis (ICD-10 - J02.0) Strep throat material was printed Drink plenty fluids, get plenty of rest. Take Tylenol or Motrin as needed for aches pains or fevers. Take the azithromycin as prescribed until gone. Off work today and tomorrow. Follow-up with your family physician if no improvement in 2 to 3 days [facility] Other Clinical Note 12-15-2021 Note Date & Type Note Facility 12-15-2021 Note OPERATIVE NOTE OPERATION DATE: 12/15/2021 PROCEDURE: Repeat low transverse section. PREOPERATIVE DIAGNOSIS: 1. Intrauterine at 39 weeks. 2. Previous . POSTOPERATIVE DIAGNOSIS: 1. Intrauterine at 39 weeks. 2. Previous . ANESTHESIA: Spinal with Duramorph. SURGEON: Ariela Dumont D.O. REAL ESTATE MANAGER: LUTHER Orozco URINE OUTPUT: Yellow and clear. BLOOD LOSS: 575 mL. SPECIMEN: Placenta. FINDINGS: Viable female. Apgars 8 at 1, 9 at 5. Weight unknown at this time. PROCEDURE: Patient was taken back to the Operating Room where she was given a spinal anesthesia with Duramorph without difficulty. She was prepped and draped in the normal sterile fashion. A Pfannenstiel skin incision was then made 2 cm above the symphysis pubis and carried down to underlying rectus fascia using a Bovie. The fascia was incised in the midline and extended laterally using Martinez scissors. Two Boni clamps were placed on the superior aspect of the fascia and dissected off the underlying rectus muscles. The same was performed on the inferior aspect as well. The muscles were then in the midline. Peritoneum was identified and entered bluntly. The peritoneum was then extended superiorly and inferiorly with good visualization of the bladder. The bladder blade was inserted. A low transverse incision was made on the patient's uterus and extended laterally digitally. The infant was then delivered atraumatically after the bladder blade was removed in the cephalic position. The cord was clamped and cut. Cord blood was obtained. The was handed off to awaiting team. The patient's placenta was spontaneously delivered. The uterus was then exteriorized. The uterus was cleared of all clots and debris. The bladder blade was reinserted. The patient's uterine incision was closed using #0 Vicryl in a running lock fashion. Excellent hemostasis was assured. The uterus was then returned to the patient's abdomen. The patient's abdomen was copiously irrigated using warm saline. Peritoneal gutters were cleared of all clots and debris. Again excellent hemostasis was assured. The patient's peritoneum was closed using 3-0 Vicryl in a running fashion. The patient's fascia was closed using #0 Vicryl in a running fashion. The patient's skin was closed using 4-0 Vicryl subcuticularly. The patient tolerated the procedure well. Sponge, lap, and needle counts were correct x2. The patient was taken to the Recovery Room in stable condition. [facility] Evaluation note Note Date & Type Note Facility Evaluation note Diagnosis Onset Date Sore throat acute Tonsillar calculus noneactiv e [facility] Work Phone: Evaluation note Note Date & Type Note Facility Evaluation note Diagnosis Well woman exam with routine gynecological exam Routine gynecological examination documented in this encounter [facility] History general Narrative - Reported Note Date & Type Note Facility History general Narrative - Reported Type Surgical History 2 c-sections [facility] Other Summary Purpose Family History Relationship Condition Age at Onset Recorded Date/T eduard father Diabetes mellitus Unknown Hypertension Unknown Not Specified Malignant melanoma Unknown Unknown Malignant neoplasm Unknown Advance Directives Advance Directive Response Recorded Date/ Time Advance Directives No May 9:31am Chief Complaint and Reason for Visit Chief Complaint sore throat, white s pots on throat Reason for Visit Sore throat Tonsillar calculus Additional Source Comments INFORMATION SOURCE (unrecogn ized section and content) DATE CREATED AUTHOR 03/07/[address] [facility] p[facility] DATE CREATED AUTHOR AUTHOR'S ORGANIZ ATION 12/24/[address] [facility] REASON FOR VISIT (unrecogniz ed section and content) Reason Comments Well Women Visit Care Teams (unrecognized sec tion and content) Team Status: Active Member Role Status Dates Orly Rich MD Primary Care Provider Active Team Status: Inactive Member Role Status Dates Orly Rich MD Primary Care Provider Active S tart: June 21, 2023 End: June 21, 2023 Augusta Mcguire APRN Attending Provider Active Start: June 21, 2023 End: June 21, 2023 Goals (unrecognized section and content) Goals may be documented in a n alternate section FOR RECORDS PERTAINING TO PATIENTS WHO ARE OR HAVE BEEN ENROLLED IN A CHEMICAL DEPENDENCY/SUBSTANCEABUSE PROGRAM, SOME INFORMATION MAY BE OMITTED. This clinical summary was aggregated from multiple sources. Caution should be exercised in using it in the provision of clinical care. This summary normalizes information from multiple sources, and as a consequence, information in this document may materially change the coding, format and clinical context of patient data. In addition, data may be omitted in some cases. CLINICAL DECISIONS SHOULD BE BASED ON THE PRIMARY CLINICAL RECORDS. [facility] [employer] provides no warranty or guarantee of the accuracy or completeness of information in this document.
[2024-04-09 13:13] LABS: Age Gdln ACOG Testing Note (.); HPV Aptima Negative (Negative); IGP, Aptima HPV, rfx 16/18,45 Note (.)
== END 2024-04-02 19:38 | disposition home or self-care (01) ==
LOC: LAB 19:37
PROVIDERS: Visit Provider Obstetrics & Gynecology
DX: Z01.419 Encounter for gynecological examination (general) (routine) without abnormal findings (principal)
CPT/HCPCS: 87624; 88175

== ENCOUNTER 2025-01-22 10:17 | Outpatient (OUT) | payer BC, SELFPAY ==
--- OUTSIDE RECORDS SUMMARY | 2025-01-22 10:24 | XMS_ITS | CCD ---
Author Organization [facility] Care Team Providers Care Loading Machine Operator Name Role Phone CRISTINA RAMOS Unavailable Unavailable CRISTINA RAMOS Unavailable Unavailable MISC, DOCTOR Unavailable Unavailable CRISTINA RAMOS Unavailable Unavailable TIM, DR TITUS Admitting Unavailable TIM, DR TITUS Attending Unavailable TIM, DR TITUS Consulting Unavailable EVERT, DR ORLY Solomon Primary Care Unavailable ZIEBER, DR VISHNU Alvarez Consulting Unavailable TIM, DR TITUS Admitting Unavailable FERNDALE, DR ROSHAN Roberson Consulting Unavailable EVERT, DR ORLY Solomon Primary Care Unavailable TIM, DR TITUS Attending Unavailable TIM, DR TITUS Consulting Unavailable TIM, DR TITUS Admitting Unavailable DANIEL, ZOLTAN Primary Care Unavailable TIM, DR TITUS Attending Unavailable TIM, DR TIUTS Consulting Unavailable TIM, DR TITUS Admitting Unavailable [...] Admitting Unavailable TIM, DR TITUS Attending Unavailable AGUBKATHARINA BEJARANO Procedure Practitioner Unavaila ble CARLOSUBFRANCISCOMKATHARINA Consulting Unavailable AYESHA MCKEON Consulting Unavailable WILIAN [...] CRISTINA Consulting Unavailable RICHARD, CRISTINA Attending Unavailable RAMOS, CRISTINA Admitting Unavailable RAMOS, CRISTINA Consulting Unavailable RAMOS, CRISTINA Attending Unavailable DANIEL, ZOLTAN Primary Care Unavailable RICHARD, CRISTINA Admitting Unavailable TIM, DR TITUS Admitting Unavailable RICH, DR ORLY Solomon Primary Care Unavailable TIM, DR TITUS Attending Unavailable TIM, DR TITUS Consulting Unavailable FERNDALE, DR ROSHAN Roberson Consulting Unavailable TIM, DR TITUS Admitting Unavailable RICH, DR ORLY Solomon Primary Care Unavailable TIM, DR TITUS Attending Unavailable TIM, DR TITUS Consulting Unavailable RICH, [...] Parul Muhammad Unavailable Unavailable Primary Care Provider [place] APRN Primary Care Provider Odalys Arrieta APRN Attending Provider [phone] Allergies Allergy Classification Reported Allergen(s) Allergy Type Date of Onset Reaction(s) Facility (1 source) Amoxicillin Drug Allergy 4 [facility] Repository (4 sources) Amoxicillin Drug Allergy 4 [facility] Other (3 sources) Amoxicillin-Pot Clavulanate Drug Intolerance 9 Hives [facility] Medications Current Medications Medication Drug Class(es) Dates Sig (Normalized) Sig (Original) Fallon (No Known Home Meds) (1 source) Start: 06-10-2024 Fallon (No Known Home Meds) Active June 10, 2024 1:00am Completed/Discontinued Medications Medication Drug Class(es) Dates Sig (Normalized) Sig (Original) azithromycin 250 mg oral tablet (2 sources) Macrolide Antimicrobial Start: 07-11-2023 End: 06-10-2024 take 2 tablets by mouth once daily, then take 1 tablet by mouth once daily Azithromycin (Zithromax Z-Greg) 250 mg tablet Discontinued 250 MG PO Daily 10 02July 11, 2023 12:00am June 10, 2024 6:45pm take 2 tabs today and 1 daily for the next 4 days Start: 03-26-2022 Azithromycin 2 50 MG 2 tablet on the first day, [...] applicable or unspecified; Translations: [MAT CARE OTH ND FTL GRTH UNS TM UNS] Onset: 12-02-2021 Episodic Other complications of (4 sources) Other specified related conditions, third trimester; Translations: [OTH SPEC PREG RELATED COND 3RD TRI] Onset: 11-09-2021 Episodic Other complications of (4 sources) Maternal care for other known or suspected poor growth, third trimester, not applicable or unspecified; Translations: [MAT CARE OTH ND FTL GRTH 3RD TM UNS] Onset: 10-26-2021 Episodic Other nutritional; endocrine; and metabolic disorders (1 source) Obesity, unspecified; Translations: [OBESITY UNSPECIFIED] Onset: 12-22-2021 Chronic Other and delivery including normal (11 sources) Encounter for routine follow-up; Translations: [Single live ] Onset: 05-17-2021 Episodic Other upper respiratory infections (6 sources) Sore throat symptom; Translations: [Acute pharyngitis, [...] Test Name Value Interpretation Reference Range Facility IGP,APTIMA HPV,AGE GDLNon AGE GDLN ACOG TESTING Note . [facility] Comment on above: TESTS RESULT FLAG UN ITS REF RANGE LAB Clinician Provided Cytology Information Source.............Cervix;Endocervix No. of containers..01 ThinPrep Vial Age Algo ACOG Kerry... 30-65 01 FLAG LEGEND: L-Low Normal,H-High Normal,LL-Alert Low,HH-Alert High <-Panic Low,>-Panic High,A-Abnormal,AA-Critical Abnormal Performed at: 01 =G [address] [id number] Leanne Ashton MD, HPV APTIMA Negative Negative [facility] Comment on above: This nucleic acid am plification test detects fourteen high- risk HPV types (16,18,31,33,35,39,45,51,52,56,58,59,66,68) without differentiation. Performed at: = - [address] [id number] Sports Anchor: Leanne Ashton MD, Phone: [phone] Performed at: - [address] [id number] Sports Anchor: Leanne Ashton MD, Phone: [phone] IGP, APTIMA HPV, RFX 16/18,45 Note . [facility] Comment on above: TESTS RESULT FLAG UN ITS REF RANGE LAB DIAGNOSIS: 02 NEGATIVE FOR INTRAEPITHELIAL LESION OR MALIGNANCY. Specimen adequacy: 02 Satisfactory for evaluation. Endocervical and/or squamous metaplastic cells (endocervical component) are present. Performed by: 02 Kiran Boyer, Septic Pump Truck Driver (ASCP) . 02 Note: Note 02 The Pap smear is a screening test designed to aid in the detection of premalignant and malignant conditions of the uterine cervix. It is not a diagnostic procedure and should not be used as the sole means of detecting cervical cancer. Both false-positive and false-negative reports do occur. Test Methodology: Note 02 This liquid based ThinPrep(R) pap test was screened with the use of an image guided system. HPV Genotype Reflex Note 02 Criteria not met, HPV Genotype not performed. FLAG LEGEND: L-Low Normal,H-High Normal,LL-Alert Low,HH-Alert High <-Panic Low,>-Panic High,A-Abnormal,AA-Critical Abnormal Performed at: 02 [facility] [address] [place] [address] Leanne Ashton MD, BRUSH-SPATULA CERVIX ENDOCERVIX [facility] Health[facility] e ALL CBC WITH AUTO DIFFon BASOPHILS ABSOLUTE AUTO 0.1 [facility] Basophils/100 WBC (Bld) 1.3 % 0.2 - 2.0 % [facility] Eosinophils/100 WBC (Bld) 3.7 % 0.9 - 7.0 % [facility] Erythrocyte distribution width (RBC) [Ratio] 12.2 % 11.0 - 15.0 % [facility] Hematocrit (Bld) [Volume fraction] 42.0 % 36.0 - 48.0 % [facility] Hemoglobin (Bld) [Mass/Vol] 13.9 g/dL 12.0 - 16.0 g/dL [facility] IMMATURE GRANULOCYTES ABS AUTO 0.01 [facility] Immature granulocytes/100 WBC (Bld) 0.2 % 0.0 - 0.5 % [facility] LYMPHOCYTES ABSOLUTE AUTO 1.5 [facility] Lymphocytes/100 WBC (Bld) 26.8 % 20.5 - 60.0 % [facility] MCH (RBC) [Entitic mass] 30.2 pg 26.7 - 34.0 pg [facility] MCHC (RBC) [Mass/Vol] 33.1 g/dL 29.9 - 35.2 g/dL [facility] MCV (RBC) [Entitic vol] 91.3 fL 81.0 - 99.0 fL [facility] MONOCYTES ABSOLUTE AUTO 0.5 [facility] Monocytes/100 WBC (Bld) 9.4 % 1.7 - 12.0 % [facility] NEUTROPHILS ABSOLUTE AUTO 3.2 [facility] Neutrophils/100 WBC (Bld) 58.6 % 43.0 - 75.0 % [facility] Platelet mean volume (Bld) [Entitic vol] 9.6 fL 9.5 - 13.5 fL [facility] EO # 0.2 [facility] PLT 313 [facility] RBC 4.60 [facility] WBC 5.4 [facility] No Panel InformationOrdered By: Augusta Mcguire on 06-21-2023 Quick Strep (POC) [facility] Quick Strepon 03-26-2022 S. pyogenes Org specific cx Ql (Throat) Positive [facility] [employer] Other Quick Strep [facility] [employer] Other CBC AUTO DIFFon 12-16-2021 BASO # 0.0 103/ul Normal 0.0-0.1 [facility] Comment on above: Performed By: #### C BC #### [facility] [address] [place] [address] Dr. Linette Vanessa Basophils/100 WBC (Bld) 0.3 % Normal 0.2-2.0 [facility] Comment on above: Performed By: #### C BC #### [facility] [address] [place] [address] Dr. Linette Vanessa EO # 0.2 103/ul Normal 0.0-0.7 [facility] Comment on above: Performed By: #### C BC #### [facility] [address] [address] [address] Linette Vanessa Eosinophils/100 WBC (Bld) 1.4 % Normal 0.9-7.0 [facility] Comment on above: Performed By: #### C BC #### [facility] [address] [place] [address] Dr. Linette Vanessa Erythrocyte distribution width (RBC) [Ratio] 12.8 % Normal 11.0-15.0 [facility] Comment on above: Performed By: #### C BC #### [facility] [address] [address] [address] Linette Vanessa Hematocrit (Bld) [Volume fraction] 28.9 % Critically low 36.0-48.0 [facility] Comment on above: Performed By: #### C BC #### [facility] [address] [address] [address] Linette Vanessa Hemoglobin (Bld) [Mass/Vol] 9.6 g/dL Critically low 12.0-16.0 [facility] Comment on above: Performed By: #### C BC #### [facility] [address] [place] [address] Dr. Linette Vanessa IG # 0.06 10e3/ul Critically high 0.00-0.03 [facility] Comment on above: Performed By: #### C BC #### [facility] [address] [place] [address] Dr. Linette Vanessa IG % 0.5 % Normal 0.0-0.5 [facility] Comment on above: Performed By: #### C BC #### [facility] [address] [place] [address] Dr. Linette Vanessa LYMPH # 2.2 103/ul Normal 1.2-3.8 [facility] Comment on above: Performed By: #### C BC #### [facility] [address] [place] [address] Dr. Linette Vanessa Lymphocytes/100 WBC (Bld) 19.3 % Critically low 20.5-60.0 [facility] Comment on above: Performed By: #### C BC #### [facility] [address] [place] [address] Dr. Linette Vanessa MANUAL DIFF REQ NO Normal [facility] Comment on above: Performed By: #### C BC #### [facility] [address] [place] [address] Dr. Linette Vanessa MCH (RBC) [Entitic mass] 30.3 pg Normal 26.7-34.0 [facility] Comment on above: Performed By: #### C BC #### [facility] [address] [address] [address] Linette Vanessa MCHC (RBC) [Mass/Vol] 33.2 g/dL Normal 29.9-35.2 [facility] Comment on above: Performed By: #### C BC #### [facility] [address] [address] [address] Linette Vanessa MCV (RBC) [Entitic vol] 91.2 fL Normal 81.0-99.0 [facility] Comment on above: Performed By: #### C BC #### [facility] [address] [address] [address] Linette Vanessa MONO # 0.9 103/ul Critically high 0.3-0.8 [facility] Comment on above: Performed By: #### C BC #### [facility] [address] [place] [address] Dr. Linette Vanessa Monocytes/100 WBC (Bld) 7.5 % Normal 1.7-12.0 [facility] Comment on above: Performed By: #### C BC #### [facility] [address] [address] [address] Linette Vanessa NEUT # 8.1 103/ul Critically high 1.4-6.5 [facility] Comment on above: Performed By: #### C BC #### [facility] [address] [place] [address] Dr. Linette Vanessa Neutrophils/100 WBC (Bld) 71.0 % Normal 43.0-75.0 [facility] Comment on above: Performed By: #### C BC #### [facility] [address] [id number] Linette Vanessa Platelet mean volume (Bld) [Entitic vol] 9.1 fL Critically low 9.5-13.5 [facility] Comment on above: Performed By: #### C BC #### [facility] [address] [place] [address] Dr. Linette Vanessa PLT 232 103/ul Normal 150-450 [facility] Comment on above: Performed By: #### C BC #### [facility] [address] [address] [address] Linette Vanessa RBC 3.17 106/ul Critically low 4.20-5.40 [facility] Comment on above: Performed By: #### C BC #### [facility] [address] [address] [address] Linette Vanessa WBC 11.5 103/ul Critically high 4.0-11.0 [facility] Comment on above: Performed By: #### C BC #### [facility] [address] [place] [address] Dr. Linette Vanessa CBC AUTO DIFFon 12-15-2021 BASO # 0.0 103/ul Normal 0.0-0.1 [facility] Comment on above: Performed By: #### C BC #### [facility] [address] [place] [address] Dr. Linette Vanessa Basophils/100 WBC (Bld) 0.4 % Normal 0.2-2.0 [facility] Comment on above: Performed By: #### C BC #### [facility] [address] [place] [address] Dr. Linette Vanessa EO # 0.2 103/ul Normal 0.0-0.7 [facility] Comment on above: Performed By: #### C BC #### [facility] [address] [place] [address] Dr. Linette Vanessa Eosinophils/100 WBC (Bld) 1.7 % Normal 0.9-7.0 [facility] Comment on above: Performed By: #### C BC #### [facility] [address] [place] [address] Dr. Linette Vanessa Erythrocyte distribution width (RBC) [Ratio] 12.6 % Normal 11.0-15.0 [facility] Comment on above: Performed By: #### C BC #### [facility] [address] [place] [address] Dr. Linette Vanessa Hematocrit (Bld) [Volume fraction] 33.7 % Critically low 36.0-48.0 [facility] Comment on above: Performed By: #### C BC #### [facility] [address] [address] [address] Linette Vanessa Hemoglobin (Bld) [Mass/Vol] 11.3 g/dL Critically low 12.0-16.0 [facility] Comment on above: Performed By: #### C BC #### [facility] [address] [address] [address] Linette Vanessa IG # 0.07 10e3/ul Critically high 0.00-0.03 [facility] Comment on above: Performed By: #### C BC #### [facility] [address] [place] [address] Dr. Linette Vanessa IG % 0.8 % Critically high 0.0-0.5 [facility] Comment on above: Performed By: #### C BC #### [facility] [address] [place] [address] Dr. Linette Vanessa LYMPH # 2.1 103/ul Normal 1.2-3.8 [facility] Comment on above: Performed By: #### C BC #### [facility] [address] [place] [address] Dr. Linette Vanessa Lymphocytes/100 WBC (Bld) 22.4 % Normal 20.5-60.0 [facility] Comment on above: Performed By: #### C BC #### [facility] [address] [place] [address] Dr. Linette Vanessa MANUAL DIFF REQ NO Normal [facility] Comment on above: Performed By: #### C BC #### [facility] [address] [place] [address] Dr. Linette Vanessa MCH (RBC) [Entitic mass] 30.6 pg Normal 26.7-34.0 [facility] Comment on above: Performed By: #### C BC #### [facility] [address] [place] [address] Dr. Linette Vanessa MCHC (RBC) [Mass/Vol] 33.5 g/dL Normal 29.9-35.2 [facility] Comment on above: Performed By: #### C BC #### [facility] [address] [place] [address] Dr. Linette Vanessa MCV (RBC) [Entitic vol] 91.3 fL Normal 81.0-99.0 [facility] Comment on above: Performed By: #### C BC #### [facility] [address] [place] [address] Dr. Linette Vanessa MONO # 0.7 103/ul Normal 0.3-0.8 [facility] Comment on above: Performed By: #### C BC #### [facility] [address] [place] [address] Dr. Linette Vanessa Monocytes/100 WBC (Bld) 7.1 % Normal 1.7-12.0 [facility] Comment on above: Performed By: #### C BC #### [facility] [address] [place] [address] Dr. Linette Vanessa NEUT # 6.3 103/ul Normal 1.4-6.5 [facility] Comment on above: Performed By: #### C BC #### [facility] [address] [place] [address] Dr. Linette Vanessa Neutrophils/100 WBC (Bld) 67.6 % Normal 43.0-75.0 [facility] Comment on above: Performed By: #### C BC #### [facility] [address] [place] [address] Dr. Linette Vanessa Platelet mean volume (Bld) [Entitic vol] 9.2 fL Critically low 9.5-13.5 [facility] Comment on above: Performed By: #### C BC #### [facility] [address] [place] [address] Dr. Linette Vanessa PLT 261 103/ul Normal 150-450 [facility] Comment on above: Performed By: #### C BC #### [facility] [address] [place] [address] Dr. Linette Vanessa RBC 3.69 106/ul Critically low 4.20-5.40 [facility] Comment on above: Performed By: #### C BC #### [facility] [address] [place] [address] Dr. Linette Vanessa WBC 9.3 103/ul Normal 4.0-11.0 [facility] Comment on above: Performed By: #### C BC #### [facility] [address] [place] [address] Dr. Linette Vanessa CULTURE URINEon 12-15-2021 CULTURE URINE Culture Observations: LIGHT GROWTH OF MIXED GENITAL LB. NO POTENTIAL PATHOGENS SEEN. Normal [facility] Comment on above: Performed By: #### H IV12 #### [facility] [address] [place] [address] Dr. Linette Vanessa DRUG SCREEN RAPID (URINE)on 12-15-2021 AMP Negative Normal NEGATIVE [facility] Comment on above: Performed By: #### D RUGRPD #### [facility] [address] [place] [address] Dr. Linette Vanessa BAR Negative Normal NEGATIVE [facility] Comment on above: Performed By: #### D RUGRPD #### [facility] [address] [place] [address] Dr. Linette Vanessa BUP Negative Normal NEGATIVE [facility] Comment on above: Performed By: #### D RUGRPD #### [facility] [address] [place] [address] Dr. Linette Vanessa BZO Negative Normal NEGATIVE [facility] Comment on above: Performed By: #### D RUGRPD #### [facility] [address] [place] [address] Dr. Linette Vanessa ERI Negative Normal NEGATIVE [facility] Comment on above: Performed By: #### D RUGRPD #### [facility] [address] [place] [address] Dr. Linette Vanessa CUT-OFFS SEE BELOW Normal [facility] Comment on above: Result Comment: AMP [...] ng/mL Performed By: #### D RUGRPD #### [facility] [address] [place] [address] Dr. Linette Vanessa DRUG CUT HEADER DRUG CLASS TEST SYSTEM CUT-OFF CONCENTRATIONS ARE FOLLOWS: Normal [facility] Comment on above: Performed By: #### D RUGRPD #### [facility] [address] [place] [address] Dr. Linette Vanessa mAMP Negative Normal NEGATIVE [facility] Comment on above: Performed By: #### D RUGRPD #### [facility] [address] [place] [address] Dr. Linette Vanessa MTD Negative Normal NEGATIVE [facility] Comment on above: Performed By: #### D RUGRPD #### [facility] [address] [place] [address] Dr. Linette Vanessa OPI Negative Normal NEGATIVE [facility] Comment on above: Performed By: #### D RUGRPD #### [facility] [address] [address] [address] Linette Vanessa OXY Negative Normal NEGATIVE [facility] Comment on above: Performed By: #### D RUGRPD #### [facility] [address] [place] [address] Dr. Linette Vanessa PCP Negative Normal NEGATIVE [facility] Comment on above: Performed By: #### D RUGRPD #### [facility] [address] [place] [address] Dr. Linette Vanessa PPX Negative Normal NEGATIVE [facility] Comment on above: Performed By: #### D RUGRPD #### [facility] [address] [place] [address] Dr. Linette Vanessa TCA Negative Normal NEGATIVE [facility] Comment on above: Performed By: #### D RUGRPD #### [facility] [address] [place] [address] Dr. Linette Vanessa THC Negative Normal NEGATIVE [facility] Comment on above: Performed By: #### D RUGRPD #### [facility] [address] [place] [address] Dr. Linette Vanessa TYPE AND SCREENon 12-15-2021 TYPE AND SCREEN Negative Normal [facility] Comment on above: Performed By: #### T NS #### [facility] [address] [place] [address] Dr. Linette Vanessa UA (CLEAN/CATCH) TRACK MOVING MACHINE OPERATOR/MICRO I F IND.on 12-15-2021 Bilirubin Ql (U) Negative Normal NEGATIVE [facility] Comment on above: Performed By: #### C BC #### [facility] [address] [place] [address] Dr. Linette Vanessa Clarity (U) CLEAR Normal CLEAR [facility] Comment on above: Performed By: #### C BC #### [facility] [address] [place] [address] Dr. Linette Vanessa Color (U) LT. YELLOW Normal YELLOW [facility] Comment on above: Performed By: #### C BC #### [facility] [address] [place] [address] Dr. Linette Vanessa Glucose Ql (U) Negative Normal NEGATIVE [facility] Comment on above: Performed By: #### C BC #### [facility] [address] [place] [address] Dr. Linette Vanessa Hemoglobin Ql (U) Negative Normal NEGATIVE [facility] Comment on above: Performed By: #### C BC #### [facility] [address] [place] [address] Dr. Linette Vanessa Ketones Ql (U) Negative Normal NEGATIVE [facility] Comment on above: Performed By: #### C BC #### [facility] [address] [place] [address] Dr. Linette Vanessa LEUKOCYTES TRACE Abnormal NEGATIVE [facility] Comment on above: Performed By: #### C BC #### [facility] [address] [place] [address] Dr. Linette Vanessa Nitrite Ql (U) Negative Normal NEGATIVE [facility] Comment on above: Performed By: #### C BC #### [facility] [address] [place] [address] Dr. Linette Vanessa pH (U) 6.0 [pH] Normal 5-9 [facility] Comment on above: Performed By: #### C BC #### [facility] [address] [place] [address] Dr. Linette Vanessa SPEC GRAVITY 1.020 Normal 1.005-<=1.02 5 [facility] Comment on above: Performed By: #### C BC #### [facility] [address] [place] [address] Dr. Linette Vanessa UA PROTEIN Negative Normal NEGATIVE/ TRACE [facility] Comment on above: Performed By: #### C BC #### [facility] [address] [place] [address] Dr. Linette Vanessa UR MICRO IND INDICATED Normal [facility] Comment on above: Performed By: #### C BC #### [facility] [address] [place] [address] Dr. Linette Vanessa Urobilinogen Qn (U) 0.2 {Roxanna'U}/dL Normal 0.2 - 1. 0 [facility] Comment on above: Performed By: #### C BC #### [facility] [address] [place] [address] Dr. Linette Vanessa URINE MICROSCOPIC ONLYon BACTERIA SMALL Abnormal NONE SEEN [facility] Comment on above: Performed By: #### C BC #### [facility] [address] [place] [address] Dr. Linette Vanessa Bacteria identified Cx Nom (U) INDICATED Normal [facility] Comment on above: Performed By: #### C BC #### [facility] [address] [place] [address] Dr. Linette Vanessa CAST NONE SEEN Normal NONE SEEN [facility] Comment on above: Performed By: #### C BC #### [facility] [address] [place] [address] Dr. Linette Vanessa Crystals LM Nom (Urine sed) NONE SEEN Normal NONE SEEN [facility] Comment on above: Performed By: #### C BC #### [facility] [address] [place] [address] Dr. Linette Vanessa Epithelial cells LM Ql (Urine sed) FEW Abnormal NONE SEEN /RARE [facility] Comment on above: Performed By: #### C BC #### [facility] [address] [place] [address] Dr. Linette Vanessa MUCOUS NONE SEEN Normal NONE SEEN [facility] Comment on above: Performed By: #### C BC #### [facility] [address] [place] [address] Dr. Linette Vanessa RBC 0-2 Normal 0-2 [facility] Comment on above: Performed By: #### C BC #### [facility] [address] [place] [address] Dr. Linette Vanessa WBC 5-10 Abnormal NONE SEEN [facility] Comment on above: Performed By: #### C BC #### [facility] [address] [place] [address] Dr. Linette Vanessa Covid-19 PCR ([facility])on 11-28 SARS-CoV-2 (COVID-19) RNA DARRYL+probe Ql (Unsp spec) Not detected Normal NOT DETECTED [facility] Comment on above: Result Comment: This test is not yet approved or cleared by the [place] FDA. When there are no FDA-approved or cleared tests available, and other criteria are met, FDA can make tests available under an emergency access mechanism called an Emergency Use Authorization (EUA). The EUA for this test is supported by the [place] of Health and Human Service's (HHS's) declaration [...] SARS-CoV-2. Performed By: #### A 1C #### [facility] [address] [place] [address] Dr. Linette Vanessa PREG GROWTHon 12-05-2021 US PREG GROWTH EXAMINATION: US PREG GROWTH HISTORY: [id number] baby COMPARISON: No relevant comparison available. FINDINGS: [...] by: ROSHAN VIERA Date: 2021-12-05 07:35 Normal [facility] GROUP B STREP CULTUREon 10-29 S. agalactiae Ag Ql (Unsp spec) Culture Observations: NEGATIVE FOR GROUP B STREPTOCOCCUS. Normal [facility] Comment on above: Performed By: #### G BSCX #### [facility] [address] [place] [address] Dr. Linette Vanessa PREG BIOPHY W NON STRESSo n 11-09-2021 [...] ROSHAN VIERA Date: 2021-11-09 12:52 Normal [facility] US PREG GROWTHon 10-26-2021 US PREG [...] Age by US: 32 weeks 6 days HERB by US: 12/15/2021 IMPRESSION: Normal interval growth Electronically authenticated by: ROSHAN VIERA Date: 2021-10-26 16:39 Normal [facility] AFP MATERNAL FOR SPINA BIFID Aon 09-16-2021 AFP MoM 1.28 Normal [facility] Comment on above: Performed By: #### C BC #### [facility] [address] [address] [address] Linette Vanessa AFP Value 54.2 ng/mL Normal [facility] Comment on above: Performed By: #### C BC #### [facility] [address] [address] [address] Linette Vanessa AFP, Serum for Spina Bifida Report Normal [facility] Comment on above: Performed By: #### C BC #### [facility] [address] [address] [address] Linette Vanessa Comment Comment Normal [facility] Comment on above: Result Comment: Uri Ventura, Ph.D., [facility] Director . References: Available Upon Request. . Multiples Of Median Cutoffs For AFP Elevations Sanchez 2.5 Black 2.8 IDD 2.0 Twins 4.5 Abbreviation Definitions IDD - Insulin Dep Diabetes OSBR - Open Spina Bifida Risk . For further inquiries contact [facility] at [phone]. Performed By: #### C BC #### [facility] [address] [address] [address] Linette Gaytan Age Collection Date 18.3 weeks Normal [facility] Comment on above: Performed By: #### C BC #### [facility] [address] [address] [address] Linette Vanessa Gestat, Age Based on HERB [facility] Comment on above: Result Comment: Reca lculations are not recommended when gestational dating by LMP and ultrasound are within 10 days. Performed By: #### C BC #### [facility] [address] [place] [address] Dr. Linette Vanessa Insulin Dep Diabetes No Normal [facility] Comment on above: Performed By: #### C BC #### [facility] [address] [address] [address] Linette Vanessa Interpretation Comment Normal [facility] Comment on above: Result Comment: Inte [...] Customer Services to discuss available options. The [employer] recommends amniocentesis be offered to women age 35 and older. Performed By: #### C BC #### [facility] [address] [address] [address] Linette Vanessa [age]B [age] Normal [facility] Comment on above: Performed By: #### C BC #### [facility] [address] [place] [address] Dr. Linette Vanessa Multiple Gestation No Normal [facility] Comment on above: Performed By: #### C BC #### [facility] [address] [address] [address] Linette Vanessa OSBR Risk 1 IN 5096 Normal [facility] Comment on above: Performed By: #### C BC #### [facility] [address] [address] [address] Linette Vanessa PDF . Normal [facility] Comment on above: Result Comment: This test was developed and its performance characteristics determined by [employer] It has not been cleared or approved by the Food and Drug Administration. Performed By: #### C BC #### [facility] [address] [place] [address] Dr. Linette Vanessa Race Normal [facility] Comment on above: Performed By: #### C BC #### [facility] [address] [place] [address] Dr. Linette Vanessa Test Results: Negative Normal [facility] Comment on above: Performed By: #### C BC #### [facility] [address] [place] [address] Dr. Linette Vanessa GLUCOSE - 1HRon 09-01-2021 Glucose [Mass/Vol] 77 mg/dL Normal 74-106 [facility] Comment on above: Performed By: #### C BC #### [facility] [address] [place] [address] Dr. Linette Vanessa HEMOGRAM AND PLATELon 2021 Hematocrit (Bld) [Volume fraction] 33.6 % Critically low 36.0-48.0 [facility] Comment on above: Performed By: #### C BC #### [facility] [address] [place] [address] Dr. Linette Vanessa Hemoglobin (Bld) [Mass/Vol] 11.1 g/dL Critically low 12.0-16.0 [facility] Comment on above: Performed By: #### C BC #### [facility] [address] [place] [address] Dr. Linette Vanessa MCH (RBC) [Entitic mass] 31.4 pg Normal 26.7-34.0 [facility] Comment on above: Performed By: #### C BC #### [facility] [address] [address] [address] Linette Vanessa MCHC (RBC) [Mass/Vol] 33.0 g/dL Normal 29.9-35.2 [facility] Comment on above: Performed By: #### C BC #### [facility] [address] [address] [address] Linette Vanessa MCV (RBC) [Entitic vol] 95.2 fL Normal 81.0-99.0 [facility] Comment on above: Performed By: #### C BC #### [facility] [address] [place] [address] Dr. Linette Vanessa PLT 245 103/ul Normal 150-450 [facility] Comment on above: Performed By: #### C BC #### [facility] [address] [address] [address] Linette Vanessa RBC 3.53 106/ul Critically low 4.20-5.40 [facility] Comment on above: Performed By: #### C BC #### [facility] [address] [place] [address] Dr. Linette Vanessa WBC 6.3 103/ul Normal 4.0-11.0 [facility] Comment on above: Performed By: #### C BC #### [facility] [address] [place] [address] Dr. Linette Vanessa US PREG ANATOMY SINGLEon [...] VISHNU DAMON Date: 2021-08-05 08:03 Normal [facility] CHLAMYDIA/GONOCOCCUS DARRYL (SW AB/URINE/PAPon 07-22-2021 Chlamydia trachomatis, DARRYL Negative Normal Negative [facility] Comment on above: Performed By: #### C BC #### [facility] [address] [place] [address] Dr. Linette Vanessa Neisseria gonorrhoeae, DARRYL Negative Normal Negative [facility] Comment on above: Performed By: #### C BC #### [facility] [address] [place] [address] Dr. Linette Vanessa VAGINITIS/VAGINOSIS DNA PROB Adonis 07-21-2021 Hortencia species Negative Normal Negative [facility] Comment on above: Performed By: #### A 1C #### [facility] [address] [place] [address] Dr. Linette Vanessa Gardnerella vaginalis Positive Abnormal Negative [facility] Comment on above: Performed By: #### A 1C #### [facility] [address] [place] [address] Dr. Linette Vanessa Trichomonas vaginalis Negative Normal Negative [facility] Comment on above: Performed By: #### A 1C #### [facility] [address] [address] [address] Linette Vanessa US PREG TVon 06-21-2021 [...] VISHNU DAMON Date: 2021-06-21 17:32 Normal [facility] HEPATITIS C VIRUS AB W/ REFL EX QUANTon 06-09-2021 HCV AB <0.1 Normal 0.0-0.9 [facility] Comment on above: Performed By: #### C BC #### [facility] [address] [place] [address] Dr. Linette Vanessa Interpretation: Comment Normal [facility] Comment on above: Result Comment: Nega tive Not infected with HCV, unless recent infection is suspected or other evidence exists to indicate HCV infection. Performed By: #### C BC #### [facility] [address] [address] [address] Linette Vanessa HEP B SURFACE ANTIGEN SCREEN on 06-08-2021 HBsAg Screen Negative Normal Negative [facility] Comment on above: Performed By: #### A 1C #### [facility] [address] [address] [address] Linette Vanessa HIV 1 AND 2 WITH REFLEXon HIV Screen 4th Generation wRfx Non-Reactive Normal Non Reactive [facility] Comment on above: Result Comment: HIV Negative HIV-1/HIV-2 antibodies and HIV-1 p24 antigen were NOT detected. There is no laboratory evidence of HIV infection. Performed By: #### H IV12 #### [facility] [address] [place] [address] Dr. Linette Vanessa RPR QUANTon 06-08-2021 Rapid Plasma Reagin, Quant Non-Reactive Normal NonRea<1:1 [facility] Comment on above: Performed By: #### C BC #### [facility] [address] [place] [address] Dr. Linette Vanessa RUBELLA AB IGGon 06-08-2021 Rubella Antibodies, IgG 2.43 index Normal Immune >0.99 [facility] Comment on above: Result Comment: Non- immune <0.90 Equivocal 0.90 - 0.99 Immune >0.99 Performed By: #### H IV12 #### [facility] [address] [place] [address] Dr. Linette Vanessa CBC AUTO DIFFon 06-07-2021 BASO # 0.0 103/ul Normal 0.0-0.1 [facility] Comment on above: Performed By: #### C BC #### [facility] [address] [place] [address] Dr. Linette Vanessa Basophils/100 WBC (Bld) 0.4 % Normal 0.2-2.0 [facility] Comment on above: Performed By: #### C BC #### [facility] [address] [place] [address] Dr. Linette Vanessa EO # 0.1 103/ul Normal 0.0-0.7 [facility] Comment on above: Performed By: #### C BC #### [facility] [address] [place] [address] Dr. Linette Vanessa Eosinophils/100 WBC (Bld) 1.0 % Normal 0.9-7.0 [facility] Comment on above: Performed By: #### C BC #### [facility] [address] [place] [address] Dr. Linette Vanessa Erythrocyte distribution width (RBC) [Ratio] 11.9 % Normal 11.0-15.0 [facility] Comment on above: Performed By: #### C BC #### [facility] [address] [place] [address] Dr. Linette Vanessa Hematocrit (Bld) [Volume fraction] 37.9 % Normal 36.0-48.0 [facility] Comment on above: Performed By: #### C BC #### [facility] [address] [place] [address] Dr. Linette Vanessa Hemoglobin (Bld) [Mass/Vol] 12.7 g/dL Normal 12.0-16.0 [facility] Comment on above: Performed By: #### C BC #### [facility] [address] [place] [address] Dr. Linette Vanessa IG # 0.03 10e3/ul Normal 0.00-0.03 [facility] Comment on above: Performed By: #### C BC #### [facility] [address] [place] [address] Dr. Linette Vanessa IG % 0.4 % Normal 0.0-0.5 [facility] Comment on above: Performed By: #### C BC #### [facility] [address] [place] [address] Dr. Linette Vanessa LYMPH # 1.9 103/ul Normal 1.2-3.8 [facility] Comment on above: Performed By: #### C BC #### [facility] [address] [place] [address] Dr. Linette Vanessa Lymphocytes/100 WBC (Bld) 24.9 % Normal 20.5-60.0 [facility] Comment on above: Performed By: #### C BC #### [facility] [address] [place] [address] Dr. Linette Vanessa MANUAL DIFF REQ NO Normal [facility] Comment on above: Performed By: #### C BC #### [facility] [address] [place] [address] Dr. Linette Vanessa MCH (RBC) [Entitic mass] 30.2 pg Normal 26.7-34.0 [facility] Comment on above: Performed By: #### C BC #### [facility] [address] [place] [address] Dr. Linette Vanessa MCHC (RBC) [Mass/Vol] 33.5 g/dL Normal 29.9-35.2 [facility] Comment on above: Performed By: #### C BC #### [facility] [address] [place] [address] Dr. iLnette Vanessa MCV (RBC) [Entitic vol] 90.0 fL Normal 81.0-99.0 [facility] Comment on above: Performed By: #### C BC #### [facility] [address] [place] [address] Dr. Linette Vanessa MONO # 0.4 103/ul Normal 0.3-0.8 [facility] Comment on above: Performed By: #### C BC #### [facility] [address] [place] [address] Dr. Linette Vanessa Monocytes/100 WBC (Bld) 5.2 % Normal 1.7-12.0 [facility] Comment on above: Performed By: #### C BC #### [facility] [address] [place] [address] Dr. Linette Vanessa NEUT # 5.3 103/ul Normal 1.4-6.5 [facility] Comment on above: Performed By: #### C BC #### [facility] [address] [place] [address] Dr. Linette Vanessa Neutrophils/100 WBC (Bld) 68.1 % Normal 43.0-75.0 [facility] Comment on above: Performed By: #### C BC #### [facility] [address] [place] [address] Dr. Linette Vanessa Platelet mean volume (Bld) [Entitic vol] 9.2 fL Critically low 9.5-13.5 [facility] Comment on above: Performed By: #### C BC #### [facility] [address] [place] [address] Dr. Linette Vanessa PLT 294 103/ul Normal 150-450 [facility] Comment on above: Performed By: #### C BC #### [facility] [address] [place] [address] Dr. Linette Vanessa RBC 4.21 106/ul Normal 4.20-5.40 [facility] Comment on above: Performed By: #### C BC #### [facility] [address] [address] [address] Linette Vanessa WBC 7.8 103/ul Normal 4.0-11.0 [facility] Comment on above: Performed By: #### C BC #### [facility] [address] [address] [address] Linette Vanessa CULTURE URINEon 06-07-2021 CULTURE URINE Culture Observations: NO GROWTH. Normal [facility] Comment on above: Performed By: #### U RCX #### [facility] [address] [address] [address] Linette Vanessa GLYCOHEMOGLOBIN A1Con 2021 ADA RECOMMENDATION ADA THERAPEUTIC TARGET 6.0 - 7.0 ACTION SUGGESTED > 7.0 Normal [facility] Comment on above: Performed By: #### A 1C #### [facility] [address] [place] [address] Dr. Linette Vanessa Glucose [Mass/Vol] 111 mg/dL Normal [facility] Comment on above: Performed By: #### A 1C #### [facility] [address] [address] [address] Linette Vanessa HbA1c (Bld) [Mass fraction] 5.5 % Normal <=6.0 [facility] Comment on above: Performed By: #### A 1C #### [facility] [address] [address] [address] Linette Vanessa ISH BOX TEST PT SEND OUTo n 06-07-2021 SENT TO REF LAB 06/07/2021 Normal [facility] Comment on above: Performed By: #### C BC #### [facility] [address] [place] [address] Dr. Linette Vanessa TYPE AND SCREENon 06-07-2021 TYPE AND SCREEN Negative Normal [facility] Comment on above: Performed By: #### H IV12 #### [facility] [address] [place] [address] Dr. Linette Vanessa ASYMPTOMATIC COVID-19 ANTIGE Non 06-01-2021 EUA Statement SEE BELOW Normal [facility] Comment on above: Result Comment: This [...] sooner. Performed By: #### C VDAGA #### [facility] [address] [place] [address] Dr. Linette Vanessa SARS-CoV-2 (COVID-19) RNA DARRYL+probe Ql (Unsp spec) Negative Normal NEGATIVE [facility] Comment on above: Result Comment: Nega tive results are presumptive. They do not preclude infection and should not be used as the sole basis for treatment decisions. Additional confirmatory testing by a molecular method should be considered. Performed By: #### C VDAGA #### [facility] [address] [place] [address] Dr. Linette Vanessa PREG TVon 05-13-2021 US PREG TV EXAMINATION: [...] by: VISHNU DAMON Date: 2021-05-13 10:55 Normal [facility] PREG QUANT HCGon 04-29-2021 HCG QUANT 28843 mIU/mL Normal [facility] Comment on above: Performed By: #### A 1C #### [facility] [address] [address] [address] Linette Vanessa HCG RANGE SEE BELOW Normal [facility] Comment on above: Result Comment: 5-50 0-1 WEEK 40-300 1-2 WEEKS 100-1,000 2-3 WEEKS 500-6,000 3-4 WEEKS 5,000-200,000 1-2 MONTHS 10,000-100,000 2-3 MONTHS 3,000-50,000 2ND TRIMESTER 1,000-50,000 3RD TRIMESTER Performed By: #### A 1C #### [facility] [address] [place] [address] Dr. Linette Vanessa Pap IG, rfx Aptima HPV, rfx 16/18,45 + Con 04-19-2021 . . Normal [facility] Comment on above: Result Comment: Perf ormed at: WB Performed By: #### H IV12 #### [facility] [address] [address] [address] Linette Vanessa Chlamydia, Nuc. Acid Amp Negative Normal Negative [facility] Comment on above: Result Comment: Perf ormed at: =G Performed By: #### H IV12 #### [facility] [address] [place] [address] Dr. Linette Vanessa DIAGNOSIS: Comment Normal [facility] Comment on above: Result Comment: NEGA TIVE FOR INTRAEPITHELIAL LESION OR MALIGNANCY. Performed at: WB Performed By: #### H IV12 #### [facility] [address] [address] [address] Linette Vanessa Gonococcus, Nuc. Acid Amp Negative Normal Negative [facility] Comment on above: Result Comment: Perf ormed at: =G Performed By: #### H IV12 #### [facility] [address] [place] [address] Dr. Linette Vanessa HPV Aptima Negative Normal Negative [facility] Comment on above: Result Comment: This nucleic acid amplification test detects fourteen high-risk HPV types (16,18,31,33,35,39,45,51,52,56,58,59,66,68) without differentiation. Performed at: =G Performed By: #### H IV12 #### [facility] [address] [address] [address] Linette Vanessa Methodology: Comment Normal [facility] Comment on above: Result Comment: This liquid based ThinPrep(R) pap test was screened with the use of an image guided system. Performed at: WB Performed By: #### H IV12 #### [facility] [address] [address] [address] Linette Vanessa Note: Comment Normal [facility] Comment on above: Result Comment: The [...] WB Performed By: #### H IV12 #### [facility] [address] [address] [address] Linette Vanessa Performed by: Comment Normal [facility] Comment on above: Result Comment: Rosaura Ureña, Septic Pump Truck Driver (ASCP) Performed at: WB Performed By: #### H IV12 #### [facility] [address] [address] [address] Linette Vanessa Specimen adequacy: Comment Normal [facility] Comment on above: Result Comment: Sati sfactory for evaluation. Endocervical and/or squamous metaplastic cells (endocervical component) are present. Performed at: WB Performed By: #### H IV12 #### [facility] [address] [address] [address] Linette Vanessa PAP W/ HR HPV RFX 16 AND 18o n 02-07-2018 DIAGNOSIS: Comment Normal [facility] Comment on above: Result Comment: NEGA TIVE FOR INTRAEPITHELIAL LESION AND MALIGNANCY.Performed at: WB Performed By: #### P APHR2 ####[facility] [id number] [address]Nicholas Murphy HPV, high-risk Negative Normal Negative [facility] Comment on above: Result Comment: This high-risk HPV test detects thirteen high-risk types(16/18/31/33/35/39/45/51/52/56/58/59/68) without differentiation. .Performed at: =G Performed By: #### P APHR2 ####[facility] [address] [place] [address] Methodology: Comment Normal [facility] Comment on above: Result Comment: This liquid based ThinPrep(R) pap test was screened with theuse of an image guided system.Performed at: WB Performed By: #### P APHR2 ####[facility] [address] [place] [address] Note: Comment Normal [facility] Comment on above: Result Comment: The Pap smear is a screening test designed to aid in the detection ofpremalignant and malignant conditions of the uterine cervix. It is not adiagnostic procedure and should not be used as the sole means of detectingcervical cancer. Both false-positive and false-negative reports do occur. .Performed at: WB Performed By: #### P APHR2 ####[facility] [address] [place] [address] Performed by: Comment Normal [facility] Comment on above: Result Comment: Ryann Mejia, Septic Pump Truck Driver (ASCP)Performed at: WB Performed By: #### P APHR2 ####[facility] [address] [place] [address] Specimen adequacy: Comment Normal [facility] Comment on above: Result Comment: Sati sfactory for evaluation. Endocervical and/or squamous metaplasticcells (endocervical component) are present.Performed at: WB Performed By: #### P APHR2 ####[facility] [address] [place] [address] . . Normal [facility] Comment on above: Result Comment: Perf ormed at: WB Performed By: #### P APHR2 ####[facility] [address] [place] [address] Vital Signs Date Time Vital Sign Value Performing Clinician Facility 01-21-2025 15:57-0400 Body height 167.64 cm Odalys Falljose THRILL PERFORMER Work Phone: [facility] 01-21-2025 15:57-0400 Body mass index (BMI) [Ratio] 32.3 kg/m2 Odalys Falljose THRILL PERFORMER Work Phone: [facility] 01-21-2025 15:57-0400 Body temperature 96.5 [degF] Odalys Falljose THRILL PERFORMER Work Phone: [facility] 01-21-2025 15:57-0400 Body weight 90.71 kg Odalys Pattersonmalka THRILL PERFORMER Work Phone: [facility] 01-21-2025 15:57-0400 Diastolic blood pressure 84 mm[Hg] Odalys Falljose THRILL PERFORMER Work Phone: [facility] 01-21-2025 15:57-0400 Heart rate 70 /min Odalys Falljose THRILL PERFORMER Work Phone: [facility] 01-21-2025 15:57-0400 SaO2% (BldA) [Mass fraction] 99 % Odalys Falljose THRILL PERFORMER Work Phone: [facility] 01-21-2025 15:57-0400 Systolic blood pressure 124 mm[Hg] Odalys Falljose THRILL PERFORMER Work Phone: [facility] 04-02-2024 16:29-0500 Body weight 88 kg Ariela Tim DO Work Phone: [facility] 04-02-2024 16:29-0500 Diastolic blood pressure 76 mm[Hg] Ariela Tim DO Work Phone: [facility] 04-02-2024 16:29-0500 Systolic blood pressure 118 mm[Hg] Ariela Tim DO Work Phone: [facility] 06-21-2023 10:02-0500 Body height 167.64 cm [facility] 06-21-2023 10:02-0500 Body mass index (BMI) [Ratio] 30.9 kg/m2 [facility] 06-21-2023 10:02-0500 Body temperature 98.8 [degF] [facility] 06-21-2023 10:02-0500 Body weight 87.08 kg [facility] 06-21-2023 10:02-0500 Heart rate 81 /min [facility] 06-21-2023 10:02-0500 Respiratory rate 18 /min [facility] 06-21-2023 10:02-0500 SaO2% (BldA) [Mass fraction] 98 % [facility] 03-26-2022 10:30-0500 Body height 167.64 cm Parul Espinozamond Other [facility] [employer] Other 03-26-2022 10:30-0500 Body mass index (BMI) [Ratio] 30.66 kg/m2 Parul Espinozamond Other [facility] Other 03-26-2022 10:30-0500 Body temperature 98.1 [degF] Parul Espionzamond Other [facility] Other 03-26-2022 10:30-0500 Body weight 86.18 kg Parul Espinozamond Other [facility] Other 03-26-2022 10:30-0500 Diastolic blood pressure 68 mm[Hg] Parul Sabina Other [facility] Other 03-26-2022 10:30-0500 Respiratory rate 18 /min Parul Espinozamond Other [facility] Other 03-26-2022 10:30-0500 SaO2% (BldA) [Mass fraction] 100 % Parul Muhammad Other [facility] Other 03-26-2022 10:30-0500 Systolic blood pressure 120 mm[Hg] Parul Muhammad Other [facility] Other 09-16-2021 13:48-0400 Body weight 81.[address] DR ARIELA DUMONT [facility] Comment on above: Performed By: #### CBC #### [facility] [address] [address] [address] Linette Vanessa Encounters Encounter Date Encounter Type Care Provider Facility Start: 01-21-2025 End: 01-21-2025 ambulatory Odalys Arrieta APRN Work Phone: [facility] Work Phone: Start: 01-21-2025 End: 01-21-2025 Patient encounter procedure Odalys Arrieta APRN DESKTOP MANAGER -[facility] Work Phone: Start: 04-02-2024 End: 04-02-2024 Patient encounter procedure Ariela Tim DO Work Phone: [facility] Work Phone: Start: 04-02-2024 End: 04-02-2024 Periodic preventive med est patient 18-39 yrs Ariela Tim DO Work Phone: [facility] Comment on above: Well woman exam with routine gynecological exam Start: 04-02-2024 End: 04-02-2024 Bamboo flowsheet Ariela Tim DO Work Phone: [facility] Start: 04-02-2024 End: 04-09-2024 Bamboo flowsheet Ariela Tim DO Work Phone: [facility] Start: 04-02-2024 End: 04-09-2024 Clinisync Result Encounter Ariela Tim DO Work Phone: [facility] Unsolicited Start: 01-08-2024 End: 01-08-2024 Clinisync Result Encounter Ariela Sloano DO Work Phone: [facility] Unsolicited Start: 01-08-2024 End: 01-08-2024 Clinisync Result Encounter Ariela Sloano DO Work Phone: [facility] Unsolicited Start: 06-21-2023 End: 06-21-2023 ambulatory [facility] Work Phone: Start: 06-21-2023 End: 06-21-2023 Patient encounter procedure [facility] Work Phone: Start: 03-26-2022 End: 03-26-2022 ambulatory Parul Muhammad Other [facility] [employer] Other Start: 03-26-2022 Office outpatient ne w 20 minutes Parul Muhammad [facility] Start: 12-21-2021 End: 12-21-[address] ORLY RICH Facility:[facility] Start: 12-15-2021 End: 12-17-2021 Evaluation and management of inpatient DR ARIELA DUMONT Facility:[facility] Start: 12-14-2021 Encounter for preprocedural laboratory examination DR ARIELA DUMONT [facility] Start: 12-13-2021 End: 12-14-[address] [...] (general) (routine) without abnormal findings CRISTINA RAMOS [facility] Start: 04-29-2021 End: 04-30-2021 ambulatory ZOLTAN SANCHEZ Facility:[facility] Start: 04-29-2021 End: 04-30-2021 Encounter for gynecological examination (general) (routine) without abnormal findings ZOLTAN SANCHEZ Facility:[facility] Start: 04-13-2021 End: 04-13-2021 ambulatory CRISTINA RAMOS Facility:[facility] Start: 02-05-2018 End: 02-05-2018 Patient encounter CRISTINA RAMOS Facility:[facility] Procedures Date Procedure Procedure Detail Performing Clinician Start: 04-02-2024 IGP,APTIMA HPV,AGE GDLN Ariela Dumont DO Work Phone: Start: 01-08-2024 ALL CBC WITH AUTO DIFF Ariela uDmont DO Work Phone: Start: 06-21-2023 Quick Strep (POC) Start: 12-16-2021 Introduction of Othe r Therapeutic Substance into Spinal Canal, Percutaneous Approach DR ARIELA DUMONT Start: 12-15-2021 Extraction of Produc ts of Conception, Low Cervical, Open Approach DR ARIELA DUMONT Plan of Treatment Date Care Activity Detail Author Start: 04-07-2025 End: 04-07-2025 Patient encounter procedure 04/07/2025 3:00 PM EST Office Visit [facility] [address] [place] [id number] Ariela Dumont, DO [address] [place], [place] [id number] [facility] Start: 04-02-2024 End: 04-02-2024 Patient encounter procedure 04/02/2024 3:50 PM EST Office Visit [facility] [address] [place] [place] [phone] Ariela Dumont, DO [address] [place], [place] [id number] [facility] Cytology Cervical or vaginal smear or scraping study Pap Smear Pathology and Cytology Routine Well woman exam with routine gynecological exam Ordered: 04/02/2024 [facility] Work Phone: Comment on above: Ordered: 04/02/2024 Human papilloma viru s DNA [Presence] in Unspecified specimen by Probe with amplification HPV DNA probe, amplified Microbiology Routine Well woman exam with routine gynecological exam Ordered: 04/02/2024 [facility] Comment on above: Ordered: 04/02/2024 [facility] Payers Date Payer Category Payer [facility] BCBS Memb er Subscriber Plan / Payer (Effective 2022-Present) Name: Sonali Mcdonald Member ID: [id number] Relation to Subscriber: Self Name: Sonali Mcdonald Subscriber ID: [id number] Payer ID: Not on file Type: Not on file Address: [address] [place] [id number] 2022 Unknown BCBS BCBS [id number] 2022-Present [phone] [address] [place] [address] [id number]. [id number] 1988 Unknown [id number] 2.16.840.1.358928.3.579.2. 593 1988 Unknown [id number] 2.16840.1.109182.3.579.2. 593 1988 Unknown [id number] 2.840.1.681728.3.579.2. 593 1988 Unknown [id number] 2.840.1.323037.3.579.2. 593 1988 Unknown [id number] 2.840.1.148729.3.579.2 593 1988 Unknown [id number] 2.840.1.732473.3.579.2. 593 1988 Unknown [id number] 2.840.1.579006.3.579.2. 593 1988 Unknown [id number] 2.840.1.379967.3.579.2. 593 1988 Unknown [id number] 2.840.1.628053.3.579.2. 593 1988 Unknown [id number] 2.840.1.931960.3.579.2. 593 1988 Unknown [id number] 2.840.1.283333.3.579.2. 593 1988 Unknown [id number] 2.840.1.111264.3.579.2. 593 1988 Unknown [id number] 2.16840.1.158340.3.579.2. 593 1988 Unknown [id number] 2.16.840.1.516377.3.579.2. 593 1988 Unknown [id number] 2.16840.1.651984.3.579.2. 593 1988 Unknown [id number] 2.16.840.1.662562.3.579.2. 593 1988 Unknown [id number] 2.16.840.1.502908.3.579.2. 593 1988 Unknown [id number] 2.16.840.1.459139.3.579.2. 593 1959 Private Health Insurance [id number] Self-pay [id number] 1959 Unknown [id number] Unknown [id number] 2.16.840.1.036793.3.579.2. 593 Unknown MMO [id number] Unknown Tali BC/BS [id number] Social History Date Type Detail Facility Sex Assigned At [employer] Other Start: 1990 Sex Assigned At Female [facility] Tobacco smoking status [facility] Tobacco smoking consumption unknown [facility] Start: 1990 Sex assigned at Not on file [facility] Start: 07-11-2023 Tobacco smoking status [facility] Never smoked tobacco (finding) [facility] Sex Female (finding) [facility] NEGATED: Highlighted row N [facility] History of Present illness Narrative 04-02-2024 JAVAD [...] nursing note reviewed. Exam conducted with a fruit farmworker present. Vitals: There is no height or [...] JAVAD Anders documented in this encounter [facility] Evaluation note 03-26-2022 Note Date & Type [...] no improvement in 2 to 3 days [facility] Other Clinical Note 12-15-2021 Note Date & Type Note Facility 12-15-2021 Note OPERATIVE NOTE OPERATION DATE: 12/15/2021 PROCEDURE: Repeat low transverse section. PREOPERATIVE DIAGNOSIS: 1. Intrauterine at 39 weeks. 2. Previous . POSTOPERATIVE DIAGNOSIS: 1. Intrauterine at 39 weeks. 2. Previous . ANESTHESIA: Spinal with Duramorph. SURGEON: Ariela Dumont D.O. PLANNING MANAGER: LUTHER Orozco URINE OUTPUT: Yellow and [...] patient's uterus and extended laterally digitally. The was then delivered atraumatically after the bladder blade was removed in the cephalic position. The cord was clamped and cut. Cord blood was obtained. The infant was handed off to awaiting team. The [...] the Recovery Room in stable condition. [facility] Evaluation note Note Date & Type Note Facility Evaluation note Diagnosis Onset Date Sore throat acute Tonsillar calculus noneactiv e [facility] Work Phone: Evaluation note Note Date & Type Note Facility Evaluation note Diagnosis Well woman exam with routine gynecological exam Routine gynecological examination documented in this encounter [facility] Evaluation note Note Date & Type Note Facility Evaluation note Diagnosis Onset Date Resolution Elevated TSH acute January 212024 3:50pm [facility] Work Phone: History general Narrative - Reported Note Date & Type Note Facility History general Narrative - Reported Type Surgical History 2 c-sections [employer] Other Reason for referral (narrative) Note Date & Type Note Facility Reason for referral (narrative) No reason for referral information available [facility] Work Phone: Summary Purpose Family History Relationship Condition Age at Onset Recorded Date/T eduard father Diabetes mellitus Unknown Hypertension Unknown Not Specified Malignant melanoma Unknown Unknown Malignant neoplasm Unknown Relationship Condition Age at Onset Recorded Date/T eduard father Diabetes mellitus Unknown Hypertension Unknown mother Malignant melanoma Unknown Unknown Malignant neoplasm Unknown Advance Directives Advance Directive Response Recorded Date/ Time Advance Directives No May 9:31am Advance Directive Response Recorded Date/ Time Advance Directives No February 22nd , 2024 10:31am Chief Complaint and Reason for Visit Chief Complaint sore throat, white s pots on throat Reason for Visit Sore throat Tonsillar calculus Chief Complaint Admit Date New PT, Wellness, Pillars December 3:50pm Reason for Visit Admit Date Elevated TSH January 21, 2025 3:50pm Additional Source Comments INFORMATION SOURCE (unrecogn ized section and content) DATE CREATED AUTHOR 03/07/2018 [facility] DATE CREATED AUTHOR AUTHOR'S ORGANIZ ATION 12/24/2021 [facility] REASON FOR VISIT (unrecogniz ed section and [...] June 21, 2023 End: June 21, 2023 Team Status: Active Member Role Status Dates Odalys Arrieta APRN PHYSICS TEACHER-C Primary Care Provider Active Team Status: Inactive Member Role Status Dates Odalys Arrieta APRN NP-Juan Manuel Primary Care Provider Active Start: December 302024 End: January 21, 2025 SAY BurnsC Attending Provider Active Start: December End: January 21, 2025 Goals (unrecognized section and content) Goals may [...] BE BASED ON THE PRIMARY CLINICAL RECORDS. [employer] [facility]. provides no warranty or guarantee of the accuracy or completeness of information in this document.
[2025-01-22 10:57] LABS: TSH W/ REFLEX FT4 4.936 uIU/mL (0.358-3.740)
== END 2025-01-22 10:18 | disposition home or self-care (01) ==
LOC: LAB 10:17
PROVIDERS: PCP Nurse Practitioner Family; Visit Provider Nurse Practitioner Family
DX: R79.89 Other specified abnormal findings of blood chemistry (principal)
CPT/HCPCS: 36415; 84439; 84443